=== PATIENT | female | born 1950 | race Caucasian/White ===

== ENCOUNTER 2017-12-25 00:22 | Outpatient (CLI) | payer MEDICARE, OTHER, SELFPAY ==
--- NOTE | 2017-12-25 13:08 | DI.MAMMO_ITS ---
SYMPTOM/DIAGNOSIS: SCREENING, Z12.31 MAMMOGRAMS: Mammograms were interpreted according to the usual protocol including computer analysis with CAD system, tomosynthesis and C view imaging. Comparison is made with prior examinations. Breast density, B. No masses or microcalcifications are seen. There is nothing to suggest malignancy. IMPRESSION: Negative mammogram. Routine screening is recommended. Category 1B. MQSA ASSESSMENT OF FINDINGS: Negative. Category 1. Patient will receive a letter notifying them of these results. BI-RADS category B. There are scattered areas of fibroglandular density.
== END 2017-12-25 00:42 ==
PROVIDERS: PCP Emergency Medicine; Visit Provider Nurse Practitioner Family
DX: Z12.31 Encounter for screening mammogram for malignant neoplasm of breast (principal)
CPT/HCPCS: 77063; 77067

== ENCOUNTER 2017-12-29 17:30 | Emergency (ER) | payer MEDICARE, OTHER, SELFPAY ==
[2017-12-29 17:39] VITALS: BP 152/79; PULSE 88; RESP 18; TEMP 37; O2SAT 99
--- NOTE | 2017-12-29 18:04 | ED.GENADUL_ITS ---
Discharge Plan Disposition Patient Disposition: HOME Condition: Stable Discharge Details Chief Complaint: Orthopedic Clinical Impression: Fracture of right ankle Primary Care Provider: Erik Hollis ED Provider: Leyla Mccann Home Meds and New Rx's Prescriptions: New oxycodone 5 mg tablet 5 mg PO Q6H PRN (Reason: pain) Qty: 10 RF: 0 Continue acetaminophen [Tylenol] 325 MG tablet 325 mg PO PRN PRNRF: 0 Discharge Instructions Instructions: Ankle Fracture (ED) Additional Instructions: Rest, ice, elevate right lower extremities much as possible. Take Tylenol or Motrin as needed and directed for pain. Take the oxycodone as needed and directed for pain not relieved with Tylenol or Motrin. You should receive a call from orthopedics regarding plan for follow-up. Return to the emergency department with any worsening or new concerning symptoms. Referrals: Tirso Graham MD [ [facility]] - Discharge Data Discharge Date/Time-TO BE ENTERED AT DEPARTURE: 12/29/17 20:35 Discharge Physician: Leyla Mccann Medical Decision Making 67-year-old female who presents with right ankle pain and injury after twisting it while hiking prior to arrival. Has not taken anything for pain. There is moderate edema/ecchymosis/tenderness to right medial and lateral malleolus. No deformity. Neurovascularly intact. We will send her right ankle x-ray and give a dose of Motrin and Tylenol. 1904 --right ankle x-ray notes acute fracture of the distal fibula to the level of the ankle mortise with minimal lateral angulation distally as well as acute nondisplaced fracture of the medial malleolus. X-ray reviewed with Dr. Graham and agree with plan for posterior splint. Patient placed on orthopedic follow-up list. Patient given crutches, instructed on nonweightbearing, rest, ice and elevation. Will send home with 2 tabs of oxycodone as well as prescription. She was instructed to return here with any concerns. HPI General Mode of arrival: wheelchair . Date/Time Provider Initiated Documentation: 12/29/17 18:00 . Limitations to Documentation: no limitations . Information obtained by: patient . HPI Narrative: Patient is a 67-year-old female presents with right ankle pain and swelling after slipped on a rock while hiking this afternoon. She denies any other injuries. She has not taken anything for pain. Past medical history: SVT Surgical history: Tonsillectomy and adenoidectomy Social history: Denies tobacco, alcohol or drugs Medications: None Allergies: Sulfa PCP: Dr. Hollis Related Data Home Medications Medication Instructions Recorded Confirmed acetaminophen [Tylenol] 325 mg PO PRN PRN 05/28/12 11/29/17 oxycodone 5 mg PO Q6H PRN #10 tab 12/29/17 Previous Rx's Medication Instructions Recorded oxycodone 5 mg PO Q6H PRN #10 tab 12/29/17 Allergies Allergy/AdvReac Type Severity Reaction Status Date / Time Sulfa (Sulfonamide AdvReac Intermediate Agitation Unverified 04/05/17 09:09 Antibiotics) General Stated Complaint: Orthopedic MARCEL: 4 Review of Systems Review of Systems All systems reviewed & are unremarkable except as noted in HPI and below PFSH Family History Mother Essential hypertension Heart disease Mental disorder Father Mental disorder Sister No problems noted. Brother Diabetes Brother No problems noted. Brother No problems noted. Grandfather Heart disease Grandfather Heart disease Grandmother Personal history of malignant neoplasm Grandmother No problems noted. Son No problems noted. Son No problems noted. Medical History SVT (supraventricular tachycardia) (Acute 09/01/14) Plantar fasciitis of right foot (Acute 07/20/15) Hallux rigidus of right foot (Acute 07/20/15) Bilateral tinnitus (Acute 07/20/15) Depression Social History current occupational status: retired frequency: 3-4 times per week duration: 45-60 minutes/day Smoking/Tobacco Use Status: Never alcohol intake: current alcohol intake frequency: a few times a week substance use type: does not use seatbelt use: always Surgical History Colonoscopy - MAC (12/23/12) Tonsillectomy and adenoidectomy Exam Const General: cooperative and healthy appearing Orientation: alert and awake [facility] Head: normal to inspection Ears: hearing grossly normal bilaterally and external ears normal General nose exam: external nose normal Face and sinus: normal facial exam Eyes General: appearance normal, both eyes and all related structures Eyelids: eyelids normal EOM: EOM intact bilaterally Neck Neck: normal visual inspection Resp Effort & Inspection: normal respiratory effort and able to speak in complete sentences Cardio Rate: regular rate Skin General skin exam: no rashes or lesions noted Neuro General: alert and awake Cognition: normal cognition Speech: speech normal Gait: antalgic Motor: muscle tone normal throughout Sensory Exam: no sensory deficits noted Extrem Right lower extremity: knee (Normal exam), ankle (Moderate tenderness to palpation, edema, ecchymoses noted to lateral and medial malleolus. No deformity ) and foot (No tenderness to palpation/edema/ecchymoses to 5th metatarsal. DP/ PT pulses intact) Other: Right DP/PT pulses intact Psych Appearance: grossly normal Mental Status: mental status grossly normal Speech and Movement: speech and movement normal Affect: normal affect Thought Process: normal Course Vital Signs Temperature 98.6 F 12/29/17 17:39 Pulse 88 12/29/17 17:39 Respiratory Rate 18 12/29/17 17:39 Blood Pressure 152/79 H 12/29/17 17:39 Pulse Oximetry 99 12/29/17 17:39 Temperature 98.6 F 12/29/17 17:39 Temperature Source Temporal Artery Scan 12/29/17 17:39 Pulse 88 12/29/17 17:39 Respiratory Rate 18 12/29/17 17:39 Respiratory Effort Non-Labored 12/29/17 17:41 Blood Pressure 152/79 H 12/29/17 17:39 Blood Pressure Position Sitting 12/29/17 17:39 Pulse Oximetry 99 12/29/17 17:39 Oxygen Delivery Method Room Air 12/29/17 17:39 Oxygen Flow Rate 0 12/29/17 17:39 Pain Level 7 12/29/17 17:41
--- NOTE | 2017-12-29 18:04 | DI.RAD_ITS ---
SYMPTOMS/DIAGNOSIS: S/P FALL, ? ACUTE FRACTURE RIGHT ANKLE: Three views were obtained. There is a bimalleolar fracture with mildly displaced fractures of the distal fibula and medial malleolus. The ankle mortise appears fairly well maintained. Note is made of a questionable linear lucency of the anterior process of the calcaneus, nondisplaced anterior process calcaneal fracture not excluded. If clinically indicated, additional evaluation with CT could be considered.
[2017-12-29] MEDS: Ibuprofen 600 MG TAB PO (18:09)
[2017-12-29] MEDS: Acetaminophen 325 MG TAB 650 MG PO (18:09)
--- NOTE | 2017-12-29 19:00 | DI.VRAD_ITS ---
EXAM: XR Right Ankle Complete, 3 or More Views CLINICAL HISTORY: 67 years old, female; Pain; Ankle; Right; Patient HX: S/P fall; Additional info: R/O acute fracture TECHNIQUE: Frontal, lateral and oblique views of the right ankle. COMPARISON: No relevant prior studies available. FINDINGS: Bones/joints: Acute fracture of the distal fibula extending to the level of ankle mortise with minimal lateral undulation distally. Acute nondisplaced fracture of the medial malleolus. Small well corticated fragment below the medial and lateral malleoli, likely chronic soft tissue calcification, versus old avulsion fractures. The ankle mortise appears intact. No dislocation. Soft tissues: Generalized soft tissue swelling. IMPRESSION: 1. Acute fracture of the distal fibula extending to the level of ankle mortise with minimal lateral undulation distally. Acute nondisplaced fracture of the medial malleolus. 2. Small well corticated fragment below the medial and lateral malleoli, likely chronic soft tissue calcification, versus old avulsion fractures. Dictated and Authenticated by: Berta Marrero MD. Ordering:TERESA ROWAN MD
[2017-12-29] MEDS: oxyCODONE 5 MG TAB PO (20:13)
== END 2017-12-29 20:35 | disposition home or self-care (01) ==
LOC: ER 20:34
PROVIDERS: Emergency Provider Physician Assistant; PCP Emergency Medicine
DX: S82.891A Other fracture of right lower leg, initial encounter for closed fracture (principal); X50.9XXA Other and unspecified overexertion or strenuous movements or postures, initial encounter; Y93.01 Activity, walking, marching and hiking
CPT/HCPCS: 29515; 99283; 73610; E0114

== ENCOUNTER → 2018-01-01 10:03 | Outpatient (BNVA) | payer MEDICARE, OTHER, SELFPAY | PROVIDERS: PCP Emergency Medicine; Referring Provider Emergency Medicine; Visit Provider Orthopaedic Surgery | DX: S82.841A Displaced bimalleolar fracture of right lower leg, initial encounter for closed fracture (principal); X58.XXXA Exposure to other specified factors, initial encounter | CPT/HCPCS: 99202; 99214; L4361 ==

== ENCOUNTER 2018-01-08 09:30 | Outpatient (CLI) | payer MEDICARE, OTHER, SELFPAY | END 2018-01-08 09:50 | PROVIDERS: PCP Emergency Medicine; Visit Provider Orthopaedic Surgery | DX: S82.841D Displaced bimalleolar fracture of right lower leg, subsequent encounter for closed fracture with routine healing (principal); X50.0XXD Overexertion from strenuous movement or load, subsequent encounter | CPT/HCPCS: 99213 ==

== ENCOUNTER 2018-01-10 06:22 | Day surgery (SDC) | payer MEDICARE, OTHER, SELFPAY ==
[2018-01-10] VITALS (11 sets, daily range): BP systolic 92–124; BP diastolic 51–82; PULSE 66–87; RESP 10–16; TEMP 35.5–36.6; O2SAT 96–98
[2018-01-10] MEDS: Lactated Ringers 1,000 ML 80 ML IV ×2 (07:15→10:20)
--- NOTE | 2018-01-10 07:21 | DI.RAD_ITS ---
SYMPTOMS/DIAGNOSIS: RIGHT ANKLE FRACTURE C-ARM FLUOROSCOPY, RIGHT ANKLE: Fluoroscopy Time: 19.9 seconds /0.80 mGy C-arm fluoroscopy was utilized by Dr. Gutiérrez during open reduction and internal fixation of tibiofibular fracture. Hard copy shows fixation apparatus in place transfixing the fracture fragments of the tibia and fibula.
[2018-01-10] MEDS: Bupivacaine 0.25% Pres-Free 30 ML VIAL (08:01)
--- NOTE | 2018-01-10 10:13 | PDOC.DSDIS_ITS ---
Discharge Plan Disposition Patient Disposition: HOME Condition: Good Discharge Details Reason For Visit: BIMALLEOLAR FX (R) ANKLE Attending Provider: Peng Gutiérrez Primary Care Provider: Erik Hollis Home Meds and New Rx's Prescriptions: New hydrocodone-acetaminophen 5-325 mg tablet 1 tab PO Q6H PRN (Reason: pain) Qty: 20 RF: 0 ibuprofen 600 mg tablet 600 mg PO TID Qty: 30 RF: 0 Continue ibuprofen 400 mg tablet 400 mg PO ONCE RF: 0 acetaminophen [Tylenol] 325 MG tablet 325 mg PO PRN PRNRF: 0 acetaminophen [Tylenol Extra Strength] 500 mg Tablet 1,000 mg PO TID RF: 0 Discharge Instructions Additional Instructions: Elevate R ankle on 2-3 pillows as much as possible for next 48 hours. Elevate R ankle when sitting. Don't step on R foot. May rest splint on floor for balance when standing. Keep dressings and splint dry and intact until return in 2 weeks. Use walker or crutches to walk. Take ibuprofen 600 mg 3 times/day for 10 days for pain and inflammation. Take hydrocodone for breakthru pain every 6 hours, if needed. Follow up with in 2 weeks. Referrals: Peng uGtiérrez MD [ [facility] STAFF PHYSICIAN] - (F/U in 2 weeks.) Equipment/Supplies: Non-Weight Bearing Crutches and Splint Activity:: Activity as Tolerated Remove Dressings/Wound Care:: Do Not Remove Shower/Bathe:: Cover Diet:: As Tolerated Discharge Orders Discharge Orders: Discharge Order (Routine); Ordered 01/10/18 Ordered By: Peng Gutiérrez DS: Diagnosis Discharge Diagnosis (1) Bimalleolar fracture of right ankle: Start date: 01/10/18 Start time: 10:12 Status: Acute Asessment and Plan: ORIF of bimalleolar R ankle fx.
[2018-01-10] MEDS: HYDROmorphone 2 MG/ML VIAL IVP ×2 (11:09→11:33)
--- NOTE | 2018-01-10 11:18 | DI.RAD_ITS ---
SYMPTOMS/DIAGNOSIS: CHECK REDUCTION FOLLOWING OPEN REDUCTION AND INTERNAL FIXATION OF BIMALLEOLAR FX PORTABLE RIGHT ANKLE: Four views were obtained and show plate and screw fixation of previously described tibiofibular fracture. The ankle is in a splint.
--- NOTE | 2018-01-10 12:06 | ROE_ITS ---
REPORT OF OPERATIVE PROCEDURE DATE OF PROCEDURE January 10, 2018 PREOPERATIVE DIAGNOSIS Bimalleolar fracture, right ankle. POSTOPERATIVE DIAGNOSIS Bimalleolar fracture, right ankle. PROCEDURES PERFORMED Open reduction internal fixation of Bimalleolar fracture right ankle, application of Holder dressing a nd short-leg posterior splint. ANESTHESIA General, Sunshine Ansari C.R.N.A. SURGEON Peng Gutiérrez M.D. MANAGER RADIO Benjamin Gutierrez INDICATIONS This is a 67-year-old white female who had sustained a bimalleolar fracture of her right ankle 10 day s ago. Her fracture was initially undisplaced. She was treated with nonweightbearing in a fracture wa lking brace. Followup x-rays approximately 10 days later showed that the fracture had displaced. Open reduction internal fixation was therefore recommended to restore the anatomy of the ankle mortise an d provide optimum function. The risks and complications of the procedure were explained to the patien t in detail preoperative. PROCEDURE The patient was taken to the Operating Room on 01/10/18. She was placed supine on the Operating Tabl e. A femoral and adductor canal blocks were performed, and then a general anesthetic was administere d. A proximal tourniquet was applied to the right upper thigh, and then the right foot, ankle and lo wer leg were prepped and draped freely in the usual sterile fashion. Under proximal tourniquet in con trol, a curved incision was made over the medial malleolus. The incision was carried down to the subc u. The saphenous vein was identified, preserved and retracted anteriorly. The fracture site was enter ed. The foot was abducted and I was able to see inside the joint. I irrigated the joint with saline s olution. There was some scuffing of the articular cartilage on the medial dome of the talus. The tibi al plafond articular cartilage was intact. I then made a direct lateral incision beginning at the distal tip of the fibula and extending proxima lly about 5 inches. The incision was carried down to the fibula. The fracture site was entered. The p eroneal fascia was incised. The fracture hematoma was irrigated and curetted from the fracture site a nd the fracture was reduced with self-centering towel clip. A 7-hole one third tubular plate was then contoured to fit the lateral fibula and then the plate was secured to the fibula with two locking sc rews in the distal holes and the rest with 3.5 cortical screws. I did place a syndesmotic screw throu gh the plate and into the tibia for added strength of the construct. Image intensification AP showed the ankle mortise is anatomically reduced, as was the medial malleolar fracture fragment. The screws were all of appropriate length. I fine tuned the reduction of the medial malleolus until it was anatomic and then fixed it with two p arallel 0.062 K-wires. With the C-arm image intensifier confirmed that the wires were in good positio n, did not violate the ankle joint. I then replaced the anterior wire with a 45-mm 4.0 cancellous scr ew with washer, which provided good compression of the fracture. The posterior pin was then bent, cut short and the distal tip of the wire was impacted into the medial malleolus with a tamp and a mallet . Both wounds were irrigated with Betadine and saline solution. The wound margins of both incisions w ere infiltrated with 0.5% Marcaine with epinephrine solution. Laterally I approximated the peroneal f ascia over the plate with interrupted sadhoh-et-dsfbm sutures of #0-Vicryl suture material. The skin edges were approximated with skin eveline. On the medial side, the skin was approximated with some in terrupted subcu #2-0 Vicryl sutures and then the skin edges were approximated with mfno-pao-neb-near sutures of #3-0 Nylon to reduce tension on the incisions. The wounds were dressed with Xeroform gauze , sterile gauze, 4x4s, ABD pad and wrapped with a 4-inch Kerlix bandage. A short-leg Holder compressi on dressing was applied, followed by a short-leg posterior fiberglass splint held in place with a 6-i nch Edi bandages. . The tourniquet was released. The patient tolerated the procedure well. Her anesth esia was reversed without complications. She was discharged to the Recovery Room in good condition. The patient was later discharged home from the Day Surgery Unit when fully recovered from her General anesthesia. She was given instructions to elevate her right ankle on two to three pillows as much as possible for the next 48 hours. She is to elevate her right ankle whenever she is sitting. She is to keep the dressing and splint intact and dry until she follows up in my office in two weeks. She is s een by physical therapy for gait training, nonweightbearing on the right in the Day Surgery unit. She is given a prescription for inflammation and pain of ibuprofen 600 mg p.o. t.i.d. for the next 10 da ys. She was given a prescription for hydrocodone/APAP 5/325 1 tablet every 6 hours as needed for veronica kthrough pain.
[2018-01-10] MEDS: oxyCODONE-CR 10 MG TABCR (12:41)
--- NOTE | 2018-01-10 13:32 | PT.INIE ---
Date of service: 01/10/18 Time of Service: 13:16 PT Notes Inpatient Physical Therapy Evaluation Date: 01/10/18 Referring Doctor: Peng Gutiérrez PT Orders: PT CONSULT: gait training NWB on R with walker or crutches. See in DSU prior to discharge home. Precautions: NWB R LE Patient Profile/Admitting Diagnosis: Pt is a 67yr old female with right bimalleolar fracture s/p open reduction internal fixation by Dr. Gutiérrez 01/10/18 PMHX: see medical chart Social History/Home Situation: Lives with in a house, 3 steps with railing to enter, 1 step inside home. Baseline mobility independent gait with no device, independent ADLs. Since her fracture 10 days ago pt has been mobilizing at home with axillary crutches non-weight bearing in home and up/down stairs. Pt states she feels comfortable with use of crutches in home setting. She also has a 4WW and FWW she can use at home as needed. Equipment Owned/DME: 4WW, FWW, axillary crutches Subjective: Pt lying on gurney, nauseous and lightheaded with any movement, RN in room monitoring patient. Pt wanting to attempt mobilization and perform gait training. Objective: General Observation: long leg cast R LE Mental Status: A&O x3 Pain: no c/o pain Bed Mobility/Transfers: Supine-sit: independent Sit-stand: independent Stand-sit: independent Sit-supine: independent Gait: Pt stood off gurney with axillary crutches, became lightheaded and dizzy, unable to progress to gait training with crutches in the room. Verbally reviewed crutch mobility with patient for level surfaces and stairs. Pt states she feels comfortable with use of crutches and has been using them at home prior to surgery. Balance: Static Sitting: normal Dynamic Sitting: normal Static Standing: fair Dynamic Standing: fair Special Tests: Mobility Limitations Standardized Measure [facility]-PAC 6 clicks Basic Mobility Inpatient Short Form: Raw Score: 18 Standardized Score: 43.63 CMS Score: 46.58% CMS Modifier: CK Informed Consent/Education: Patient instructed in purpose of PT consult and plan of care. Assessment: Pt is a 67yr old female with right bimalleolar fracture s/p open reduction internal fixation by Dr. Gutiérrez 01/10/18. Patient gait instruction limited by nausea and lightheadedness. Verbally reviewed crutch mobility with patient for level surfaces and stairs. Pt states she feels comfortable with use of crutches and has been using them at home prior to surgery. Pt also has a FWW and 4WW at home she can use as needed. Pt to be discharged to home today following MD instructions. Impairments are contributing to the following functional limitations: AMPAC score CMS Score: 46.58% Patient is assessed as a Low 77503 complexity based on the following: History: see above Examination: see above Presentation: evolving Decision Making: AMPAC score CMS Score: 46.58% Goals: not applicable Plan of Care/Treatment Plan: PT eval DISCHARGE RECOMMENDATIONS: Home TREATMENT CODE/TIME: 15 IE 1315 G Codes in the area mobility of walking and moving around: current status [id number] CK; projected status GP [id number]. Discharge status (if discharging) GP [id number] CK AMPAC score CMS Score: 46.58% Mary Bustillos PT.
--- NOTE | 2018-01-10 13:42 | IN_ITS ---
Date of service: 01/10/18 Time of Service: 13:16 PT Notes Inpatient Physical Therapy Evaluation Date: 01/10/18 Referring Doctor: Peng Gutiérrez PT Orders: PT CONSULT: gait training NWB on R with walker or crutches. See in DSU prior to discharge home. Precautions: NWB R LE Patient Profile/Admitting Diagnosis: Pt is a 67yr old female with right bimalleolar fracture s/p open reduction internal fixation by Dr. Gutiérrez 01/10/18 PMHX: see medical chart Social History/Home Situation: Lives with in a house, 3 steps with railing to enter, 1 step inside home. Baseline mobility independent gait with no device, independent ADLs. Since her fracture 10 days ago pt has been mobilizing at home with axillary crutches non-weight bearing in home and up/ down stairs. Pt states she feels comfortable with use of crutches in home setting. She also has a 4WW and FWW she can use at home as needed. Equipment Owned/DME: 4WW, FWW, axillary crutches Subjective: Pt lying on gurney, nauseous and lightheaded with any movement, RN in room monitoring patient. Pt wanting to attempt mobilization and perform gait training. Objective: General Observation: long leg cast R LE Mental Status: A&O x3 Pain: no c/o pain Bed Mobility/Transfers: Supine-sit: independent Sit-stand: independent Stand-sit: independent Sit-supine: independent Gait: Pt stood off gurney with axillary crutches, became lightheaded and dizzy, unable to progress to gait training with crutches in the room. Verbally reviewed crutch mobility with patient for level surfaces and stairs. Pt states she feels comfortable with use of crutches and has been using them at home prior to surgery. Balance: Static Sitting: normal Dynamic Sitting: normal Static Standing: fair Dynamic Standing: fair Special Tests: Mobility Limitations Standardized Measure [facility]-PAC 6 clicks Basic Mobility Inpatient Short Form: Raw Score: 18 Standardized Score: 43.63 CMS Score: 46.58% CMS Modifier: CK Informed Consent/Education: Patient instructed in purpose of PT consult and plan of care. Assessment: Pt is a 67yr old female with right bimalleolar fracture s/p open reduction internal fixation by Dr. Gutiérrez 01/10/18. Patient gait instruction limited by nausea and lightheadedness. Verbally reviewed crutch mobility with patient for level surfaces and stairs. Pt states she feels comfortable with use of crutches and has been using them at home prior to surgery. Pt also has a FWW and 4WW at home she can use as needed. Pt to be discharged to home today following MD instructions. Impairments are contributing to the following functional limitations: AMPAC score CMS Score: 46.58% Patient is assessed as a Low 51503 complexity based on the following: History: see above Examination: see above Presentation: evolving Decision Making: AMPAC score CMS Score: 46.58% Goals: not applicable Plan of Care/Treatment Plan: PT eval DISCHARGE RECOMMENDATIONS: Home TREATMENT CODE/TIME: 15 IE 1315 G Codes in the area mobility of walking and moving around: current status [id number] CK; projected status GP [id number]. Discharge status (if discharging) GP [id number] CK AMPAC score CMS Score: 46.58% Mary Bustillos PT.
[2018-01-10] MEDS: Ondansetron O.D.T. 4 MG TABEF PO (14:04)
== END 2018-01-10 14:30 | disposition home or self-care (01) ==
PROVIDERS: PCP Emergency Medicine; Visit Provider Orthopaedic Surgery
PROC: (CPT 27814; principal; 2018-01-10 08:00)
DX: S82.841A Displaced bimalleolar fracture of right lower leg, initial encounter for closed fracture (principal); X58.XXXA Exposure to other specified factors, initial encounter; G89.18 Other acute postprocedural pain
CPT/HCPCS: 27814; 76942; 97161; 73600; 73610; G8978; J0131; J0690; J1100; J1885; J2250; J2405; J3010

== ENCOUNTER 2018-01-23 10:38 | Outpatient (CLI) | payer MEDICARE, OTHER, SELFPAY ==
--- NOTE | 2018-01-23 10:31 | DI.RAD_ITS ---
SYMPTOMS/DIAGNOSIS: F/U OPEN REDUCTION AND INTERNAL FIXATION RIGHT ANKLE: When compared with the postoperative images from 01/10/2018, the medial and lateral malleolar fractures are in anatomical position, orthopedic hardware in place with no interval change when compared with the postoperative examination of 01/10/2018.
== END 2018-01-23 10:58 ==
PROVIDERS: PCP Emergency Medicine; Referring Provider Emergency Medicine; Visit Provider Orthopaedic Surgery
DX: S82.841D Displaced bimalleolar fracture of right lower leg, subsequent encounter for closed fracture with routine healing (principal); W01.0XXD Fall on same level from slipping, tripping and stumbling without subsequent striking against object, subsequent encounter; Y93.01 Activity, walking, marching and hiking
CPT/HCPCS: 73610

== ENCOUNTER 2018-02-20 10:13 | Outpatient (CLI) | payer MEDICARE, OTHER, SELFPAY ==
--- NOTE | 2018-02-20 10:06 | DI.RAD_ITS ---
SYMPTOM/DIAGNOSIS: PAIN RIGHT ANKLE: Comparison is made with 23 Jan 2018. There has been no change in the hardware or fracture alignment.
== END 2018-02-20 10:33 ==
PROVIDERS: PCP Emergency Medicine; Referring Provider Emergency Medicine; Visit Provider Orthopaedic Surgery
DX: M25.571 Pain in right ankle and joints of right foot (principal); S82.841D Displaced bimalleolar fracture of right lower leg, subsequent encounter for closed fracture with routine healing; W01.0XXD Fall on same level from slipping, tripping and stumbling without subsequent striking against object, subsequent encounter
CPT/HCPCS: 73600

== ENCOUNTER 2018-03-20 10:57 | Outpatient (CLI) | payer MEDICARE, OTHER, SELFPAY ==
--- NOTE | 2018-03-20 10:51 | DI.RAD_ITS ---
SYMPTOMS/DIAGNOSIS: F/U ORIF RIGHT ANKLE: Three views. Comparison 02/20/18. There are again seen sideplate and screws transfixing the fractures of the distal right tibia and fibula. The orthopedic hardware appears in good position. No evidence of failure is seen. The fractures appear stable in alignment. No new fractures or dislocations are present. There is osteopenia of the bones, likely reflecting decreased use. IMPRESSION: Stable right ankle.
== END 2018-03-20 11:17 ==
PROVIDERS: PCP Emergency Medicine; Visit Provider Orthopaedic Surgery
DX: S82.841D Displaced bimalleolar fracture of right lower leg, subsequent encounter for closed fracture with routine healing (principal); M85.88 Other specified disorders of bone density and structure, other site; W01.0XXD Fall on same level from slipping, tripping and stumbling without subsequent striking against object, subsequent encounter
CPT/HCPCS: 73610

== ENCOUNTER 2018-09-09 10:52 | Outpatient (CLI) | payer MEDICARE, OTHER, SELFPAY ==
--- NOTE | 2018-09-09 11:00 | DI.RAD_ITS ---
SYMPTOM/DIAGNOSIS: PAIN RIGHT ANKLE: Comparison is made with 20 March 2018. There is no evidence of an acute fracture. There is now lucency surrounding the mortise screw. The remaining hardware appears unchanged. There is soft tissue swelling around both malleoli The ankle mortise and talar dome appear intact.
== END 2018-09-09 11:12 ==
PROVIDERS: PCP Emergency Medicine; Referring Provider Emergency Medicine; Visit Provider Orthopaedic Surgery
DX: M25.571 Pain in right ankle and joints of right foot (principal); M79.89 Other specified soft tissue disorders; T84.84XA Pain due to internal orthopedic prosthetic devices, implants and grafts, initial encounter; Z87.81 Personal history of (healed) traumatic fracture
CPT/HCPCS: 99213; 73610

== ENCOUNTER 2018-09-16 10:54 | Outpatient (CLI) | payer MEDICARE, OTHER, SELFPAY ==
--- NOTE | 2018-09-16 12:45 | W.PREOPHP ---
Date of service: 09/16/18 Assessment and Plan (1) Painful orthopaedic hardware: Current visit: Yes Status: Acute Hardware removal of medial malleolus K wire, and syndesmotic screw of the right ankle. Details of surgery were discussed with patient as well as risks and pertinent anatomy. All questions were answered. History of Present Illness Chief Complaint: Painful hardware right ankle Narrative: Aliza is a 68-year-old female who comes in today for preop history and physical for removal of hardware of her right ankle. She had an ORIF of a bimalleolar fracture of the right ankle on 01/10/2018, so about 9 months ago, and she has healed nicely from the right ankle fracture. Since the surgery, however, she has had some pain both on the medial and lateral aspects of her ankle. She also has some localized swelling around the area of the incision, especially the medial incision. X-rays were taken a few months after surgery which reveal that the K wire on the medial malleolus is starting to back out, and the syndesmotic screw appears to be a bit loose. Because she is having continued pain, Dr. Gutiérrez offers a hardware removal of the K wire on the medial side, and the syndesmotic screw. She is agreed to this plan, and is anxious to proceed. Pertinent Surgical Information Aliza has had issues with tachycardia for the last few years, and in fact has had a couple stents of a Holter monitor which did not reveal any atrial fibrillation, but did reveal some PVCs, and most recently SVT while she was in [place]. She is being followed by [facility] cardiology, and in fact has an appointment on September 23 with cardiology for clearance for her surgery on September 24. Patient denies history of hypertension, CVA, [place], angina, asthma, COPD, renal or liver disorders, hepatitis, bleeding disorders, diabetes, immune or thyroid disorders. No complications from anesthesia. Review of Systems Constitutional Denies fever(s) ENT Denies dizziness and Denies sore throat Cardiovascular Denies chest pain, [place] [facility] [place] and Denies dyspnea Respiratory Denies cough and Denies dyspnea Gastrointestinal Denies abdominal pain, Denies melena, Denies hematochezia, Denies diarrhea, Denies nausea and Denies vomiting Genitourinary Denies hematuria and Denies dysuria Neurologic Denies dizziness Endocrine Reports palpitations [place] [facility] [place] [facility] Medical History SVT (supraventricular tachycardia) (Acute 09/01/14) Plantar fasciitis of right foot (Acute 07/20/15) Hallux rigidus of right foot (Acute 07/20/15) Bilateral tinnitus (Acute 07/20/15) Depression Surgical History Status post ORIF of fracture of ankle (Acute 01/10/18) Colonoscopy - MAC (12/23/12) Tonsillectomy and adenoidectomy Family History Mother Essential hypertension Heart disease Mental disorder Father Mental disorder Sister No problems noted. Brother Diabetes Brother No problems noted. Brother No problems noted. Grandfather Heart disease Grandfather Heart disease Grandmother Personal history of malignant neoplasm Grandmother No problems noted. Son No problems noted. Son No problems noted. Social History Smoking/Tobacco Use Status: Never Alcohol Intake: never Drug use: Never Substance use type: does not use Duration: 45-60 minutes/day Frequency: 3-4 times per week Seatbelt use: always Do you feel safe at home: Yes Do you feel safe in your relationship?: Yes History History Para 2 Hx # Term Pregnancies Multiple births Hx # Pregnancies Ectopic pregnancies AB induced Hx Number of Living Children AB spontaneous Meds Home Medications Medication Instructions Recorded Confirmed Type acetaminophen 500 mg tablet 1,000 mg PO PRN tab 09/09/18 09/16/18 History Allergies Allergy/AdvReac Type Severity Reaction Status Date / Time Sulfa (Sulfonamide AdvReac Intermediate Agitation Verified 09/16/18 11:58 Antibiotics) Exam HENMT Head: normocephalic and atraumatic General nose exam: no nasal discharge Throat: uvula midline and no uvular edema Other: soft palate rises symmetrically, no erythema Eyes Conjunctivae: conjunctivae normal Sclera: sclerae normal Pupils: PERRL Resp Effort & Inspection: normal respiratory effort Auscultation: clear to auscultation bilaterally and no wheezes Cardio Rate: regular rate Rhythm: regular rhythm Heart Sounds: S1 normal, S2 normal and no murmurs GI Palpation: soft, no hepatosplenomegaly and nontender Auscultation: normal bowel sounds
--- NOTE | 2018-09-16 12:54 | HPE_ITS ---
Date of service: 09/16/18 Assessment and Plan (1) Painful orthopaedic hardware: Current visit: Yes Status: Acute Hardware removal of medial malleolus K wire, and syndesmotic screw of the right ankle. Details of surgery were discussed with patient as well as risks and pertinent anatomy. All questions were answered. History of Present Illness Chief Complaint: Painful hardware right ankle Narrative: Aliza is a 68-year-old female who comes in today for preop history and physical for removal of hardware of her right ankle. She had an ORIF of a bimalleolar fracture of the right ankle on 01/10/2018, so about 9 months ago, and she has healed nicely from the right ankle fracture. Since the surgery, however, she has had some pa in both on the medial and lateral aspects of her ankle. She also has some localized swelling around the area of the incision, especially the medial incision. X-rays were taken a few months after surgery which reveal that the K wire on the medial malleolus is starting to back out, and the syndesmotic screw appears to be a bit loose. Because she is having continued pain, Dr. Gutiérrez offers a hardware removal of the K wire on the medial side, and the syndesmotic screw. She is agreed to this plan, and is anxious to proceed. Pertinent Surgical Information Aliza has had issues with tachycardia for the last few years, and in fact has had a couple stents of a Holter monitor which did not reveal any atrial fibrillation, but did reveal some PVCs, and most recently SVT while she was in [place]. She is being followed by [facility] cardiology, and in fact has an appointment on September 23 with cardiology for clearance for her surgery on September 24. Patient denies history of hypertension, CVA, [place], angina, asthma, COPD, renal or liver disorders, hepatitis, bleeding disorders, diabetes, immune or thyroid disorders. No complications from anesthesia. Review of Systems Constitutional Denies fever(s) ENT Denies dizziness and Denies sore throat Cardiovascular Denies chest pain, Reports palpitations (followed by cardiology at [facility] [place] and Denies dyspnea Respiratory Denies cough and Denies dyspnea Gastrointestinal Denies abdominal pain, Denies melena, Denies hematochezia, Denies diarrhea, Denies nausea and Denies vomiting Genitourinary Denies hematuria and Denies dysuria Neurologic Denies dizziness Endocrine Reports palpitations (followed by cardiology at [facility] [place] [facility] Medical History SVT (supraventricular tachycardia) (Acute 09/01/14) Plantar fasciitis of right foot (Acute 07/20/15) Hallux rigidus of right foot (Acute 07/20/15) Bilateral tinnitus (Acute 07/20/15) Depression Surgical History Status post ORIF of fracture of ankle (Acute 01/10/18) Colonoscopy - MAC (12/23/12) Tonsillectomy and adenoidectomy Family History Mother Essential hypertension Heart disease Mental disorder Father Mental disorder Sister No problems noted. Brother Diabetes Brother No problems noted. Brother No problems noted. Grandfather Heart disease Grandfather Heart disease Grandmother Personal history of malignant neoplasm Grandmother No problems noted. Son No problems noted. Son No problems noted. Social History Smoking/Tobacco Use Status: Never Alcohol Intake: never Drug use: Never Substance use type: does not use Duration: 45-60 minutes/day Frequency: 3-4 times per week Seatbelt use: always Do you feel safe at home: Yes Do you feel safe in your relationship?: Yes History History Para 2 Hx # Term Pregnancies Multiple births Hx # Pregnancies Ectopic pregnancies AB induced Hx Number of Living Children AB spontaneous Meds Home Medications Medication Instructions Recorded Confirmed Type acetaminophen 500 mg tablet 1,000 mg PO PRN tab 09/09/18 09/16/18 History Allergies Allergy/AdvReac Type Severity Reaction Status Date / Time Sulfa (Sulfonamide AdvReac Intermediate Agitation Verified 09/16/18 11:58 Antibiotics) Exam HENMT Head: normocephalic and atraumatic General nose exam: no nasal discharge Throat: uvula midline and no uvular edema Other: soft palate rises symmetrically, no erythema Eyes Conjunctivae: conjunctivae normal Sclera: sclerae normal Pupils: PERRL Resp Effort & Inspection: normal respiratory effort Auscultation: clear to auscultation bilaterally and no wheezes Cardio Rate: regular rate Rhythm: regular rhythm Heart Sounds: S1 normal, S2 normal and no murmurs GI Palpation: soft, no hepatosplenomegaly and nontender Auscultation: normal bowel sounds
== END 2018-09-16 11:14 ==
PROVIDERS: PCP Emergency Medicine; Visit Provider Orthopaedic Surgery
DX: T84.84XA Pain due to internal orthopedic prosthetic devices, implants and grafts, initial encounter (principal); Z01.818 Encounter for other preprocedural examination; Z87.81 Personal history of (healed) traumatic fracture
CPT/HCPCS: NC

== ENCOUNTER 2018-09-24 11:23 | Day surgery (SDC) | payer MEDICARE, OTHER, SELFPAY ==
[2018-09-16 11:00] VITALS: BP 146/77; PULSE 78; RESP 18; TEMP 36.6; O2SAT 98
[2018-09-24 11:43] VITALS: BP 136/78; PULSE 82; RESP 16; TEMP 37.2; O2SAT 95
[2018-09-24] MEDS: Lactated Ringers 1,000 ML 80 ML IV (12:10)
--- NOTE | 2018-09-24 13:30 | DI.RAD_ITS ---
SYMPTOMS/DIAGNOSIS: RIGHT ANKLE HARDWARE REMOVAL RIGHT FOOT: Fluoroscopy Time: 6 sec C-arm fluoroscopy was utilized by Dr. Gutiérrez during reported hardware removal. Hard copy shows forceps positioned over the tibiofibular screw, which appeared to have a lucent halo suggesting loosening on recent films of September 09.
--- NOTE | 2018-09-24 14:23 | W.PM.DSUDISC ---
Discharge Plan Disposition Patient Disposition: HOME Condition: Good Discharge Details Reason For Visit: Remove painful hardware R ankle Attending Provider: Peng Gutiérrez Primary Care Provider: Erik Hollis Home Meds and New Rx's Prescriptions: Continued acetaminophen [Tylenol Extra Strength] 500 mg tablet 1,000 mg PO PRN RF: 0 Discharge Instructions Additional Instructions: Elevate R ankle on 1-2pillows when sitting. Crutches to walk. Discontinue crutches when you can step fully on R foot without pain. Remove dressings, shower and get incisions wet after 48 hours. Leave incisions uncovered when they are dry and sealed. Take ibuprofen or tylenol for pain , if needed. Follow up with in 2 weeks. Referrals: Peng Gutiérrez MD [ [facility] STAFF PHYSICIAN] - (f/u in 2 weeks.) Equipment/Supplies: Partial Weight Bearing Crutches Activity:: Activity as Tolerated Remove Dressings/Wound Care:: 48 hours Shower/Bathe:: 48 hours Diet:: As Tolerated Discharge Orders Discharge Orders: Discharge Order (Routine); Ordered 09/24/18 Ordered By: Peng Gutiérrez DS: Diagnosis Discharge Diagnosis (1) Painful orthopaedic hardware: Status: Acute
[2018-09-24 14:26] VITALS: BP 132/74; PULSE 83; RESP 10; TEMP 36.6; O2SAT 96
[2018-09-24 14:30] VITALS: BP 134/70; PULSE 77; RESP 11; TEMP 36.6; O2SAT 96
[2018-09-24 14:35] VITALS: BP 132/66; PULSE 74; RESP 10; TEMP 36.6; O2SAT 95
[2018-09-24 14:50] VITALS: BP 123/62; PULSE 80; RESP 11; TEMP 36.6; O2SAT 95
[2018-09-24 15:34] VITALS: BP 131/71; PULSE 74; RESP 17; TEMP 36.8; O2SAT 99
--- NOTE | 2018-09-26 07:46 | ROE_ITS ---
REPORT OF OPERATIVE PROCEDURE DATE OF PROCEDURE September 24, 2018 PREOPERATIVE DIAGNOSIS Painful hardware right ankle. POSTOPERATIVE DIAGNOSIS Painful hardware right ankle. PROCEDURE Removal of painful hardware right ankle. ANESTHESIA General. SURGEON Peng Gutiérrez M.D. INDICATIONS This 68-year-old white female who had undergone an ORIF of a bimalleolar fracture dislocation of the right ankle over two years ago. She had done well following the surgery, but has noticed some ongoing problems with medial pain. X-rays reveal that the smooth K-wire that was used as an adjunct to screw fixation of the medial malleolus had backed out. In addition, it was noted that she had a syndesmotic screw placed through her fibular plate that had not broken yet, but had obvious signs of loosening. It was recommended that the syndesmotic screw be removed prior to breakage since it had done what it was supposed to do. I recommended that the pin be removed from the medial side of the ankle as well. The risks and complications of the procedure wer e explained to the patient in detail preoperatively. DESCRIPTION OF PROCEDURE The patient was taken to the Operating Room on 09/24/2018. She was placed supine on the operating ta ble. A general anesthetic was administered. The right foot and ankle, and lower leg were prepped and draped free and usual sterile fashion. I infiltrated the skin within the old scar on the medial side of the ankle with 0.5% Marcaine with epinephrine solution. A small incision was made about 3 centimet ers in length with the old scar. The incision was carried down until I felt metal. Using a dental pic , I was able to dissect the soft tissues out and remove the smooth K-wire, which was loose. The skin edges were then approximated with three simple #4-0 Nylon sutures. Attention was turned to the lateral side. I was able to palpate the screws and the lateral plate and was able to note that the syndesmotic screw was the third screw from the distal end. I made a small i ncision again about 3 centimeters directly over the screw head. I carried down the metal, sharp disse ction was used to expose the screw head. A 3.5 screwdriver was then used to back out the syndesmotic screw. Since the syndesmotic screw was the only long screw in the plate, I did not need x-rays to leslie ntify it. The wound margins were infiltrated with 0.5% Marcaine with epinephrine solution. The skin e dges were approximated with three interrupted #4-0 Nylon sutures. Both incisions were dressed with Xe roform gauze, sterile gauze 4x4s, and wrapped with cling bandage, followed by an Edi bandage. The pat ient's anesthesia was reversed without complications. Blood loss was minimal. She was discharged to [facility] in good condition. The patient was later discharged home from the Day Surgery unit when fully recovered from her general anesthesia. She was instructed to elevate her right ankle when sitting as much as possible for the next 48 hours. She may be weightbearing as tolerated to the right ankle with crutches. She may discontinue the crut ches when she can step fully on her right ankle without pain. She may remove dressing, shower and get her incision wet after 48 hours. She can leave the incisions uncovered when they are dry and sealed. She is told to take Tylenol or ibuprofen for pain. She will followup with Dr. Gutiérrez in two weeks.
== END 2018-09-24 15:51 | disposition home or self-care (01) ==
PROVIDERS: PCP Emergency Medicine; Visit Provider Orthopaedic Surgery
PROC: (CPT 20680; principal; 2018-09-24 13:00)
DX: T84.84XA Pain due to internal orthopedic prosthetic devices, implants and grafts, initial encounter (principal); T84.126A Displacement of internal fixation device of bone of right lower leg, initial encounter; Y83.8 Other surgical procedures as the cause of abnormal reaction of the patient, or of later complication, without mention of misadventure at the time of the procedure; M25.571 Pain in right ankle and joints of right foot
CPT/HCPCS: 20680; 73600; J1100; J2405; J3010

== ENCOUNTER → 2018-10-07 08:52 | Outpatient (BNVA) | payer MEDICARE, OTHER, SELFPAY | PROVIDERS: PCP Emergency Medicine; Referring Provider Emergency Medicine; Visit Provider Orthopaedic Surgery | DX: T84.84XA Pain due to internal orthopedic prosthetic devices, implants and grafts, initial encounter (principal); Z47.89 Encounter for other orthopedic aftercare ==

== ENCOUNTER 2019-04-03 01:17 | Outpatient (CLI) | payer MEDICARE, OTHER, SELFPAY ==
[2019-04-03 12:46] LABS: Calculated LDL 127 mg/dL; Cholesterol 222 mg/dL (<200); HDL Cholesterol 76 mg/dL (40-60); Triglyceride 99 mg/dL (<150)
== END 2019-04-03 01:37 ==
PROVIDERS: PCP Emergency Medicine; Visit Provider Emergency Medicine
DX: H93.13 Tinnitus, bilateral (principal); E78.89 Other lipoprotein metabolism disorders
CPT/HCPCS: 36415; 80061

== ENCOUNTER → 2020-01-29 09:02 | Outpatient (CLI) | payer MEDICARE, OTHER, SELFPAY ==
--- NOTE | 2020-01-29 08:45 | DI.RAD_ITS ---
EXAM: XR ANKLE RT COMPLETE CLINICAL HISTORY: pain in ankle. TECHNIQUE: 2D digital imaging was performed. COMPARISON: CR XR ANKLE RT COMPLETE from 09/09/2018 FINDINGS: BONES: There are stable post operative changes present. No acute fracture or dislocation. Well corti cated osseous densities are seen at the tips of both the medial lateral malleoli consistent with old injury. JOINTS: The joint spaces are well maintained. No joint effusion is present. SOFT TISSUE: Normal. IMPRESSION: Stable postoperative changes. DATA REPOSITORY: RADIATION DOSE DELIVERED:
--- NOTE | 2020-01-29 08:45 | DI.RAD_ITS ---
EXAM: XR FOOT RT LIMITED CLINICAL HISTORY: eval R 1st MTP pain. TECHNIQUE: 2D digital imaging was performed. COMPARISON: CR XR foot RT limited from 09/24/2018 FINDINGS: BONES: No acute fracture is present. No bony destructive lesion is seen. JOINTS: No dislocation present. At the 1st MTP joint, there are large spurs present. Mild narrowing of the joint space is noted. There is a mild hallux valgus deformity. SOFT TISSUE: Normal. 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 DATA REPOSITORY: RADIATION DOSE DELIVERED:
== END ==
PROVIDERS: PCP Emergency Medicine; Referring Provider Emergency Medicine; Visit Provider Student in an Organized Health Care Education/Training Program
DX: M19.071 Primary osteoarthritis, right ankle and foot (principal); M25.571 Pain in right ankle and joints of right foot; M20.21 Hallux rigidus, right foot; Z87.81 Personal history of (healed) traumatic fracture
CPT/HCPCS: 99213; 73610; 73620

== ENCOUNTER 2020-06-27 02:31 | Outpatient (CLI) | payer MEDICARE, OTHER, SELFPAY ==
--- NOTE | 2020-06-27 08:00 | DI.MAMMO_ITS ---
EXAM: MG MAMMO SCREENING CLINICAL HISTORY: screening,Z12.39. TECHNIQUE: Bilateral full field digital CC and MLO mammographic images were obtained with 3D tomosyn thesis and utilizing computer aided detection (CAD). COMPARISON: Prior mammograms dating back to 2011, the most recent being December 2017. FINDINGS: There are no CAD designations. There are no new spiculated masses. There is a group of microcalcifications in the left breast seen on the CC view slightly lateral cente r and 3 centimetres in from the nipple. This microcalcification group remains stable from 2011 and t herefore benign. There is no significant architectural distortion nor skin thickening-retraction. IMPRESSION: Stable benign findings. No radiographic evidence of malignancy. BI-RADS Category 2 - Benign Findings Breast Density - Category B - Scattered areas of fibroglandular density Breast density Category C or D implies that the patient has dense breast tissue. Dense breast tissue can make it harder to find cancer on a mammogram. Dense breast tissue is also associated with an incr eased risk of breast cancer. This information about the result of the mammogram report was provided to the patient to raise their awareness. Use this report when you speak with the patient about their risks for breast cancer, which includes their family history. At that time, you may recommend additional screening tests (Ultrasoun d or MRI) as these tests may add significant information. A negative radiographic report should not delay biopsy if a dominant or clinically suspicious mass is present. Up to ten percent of cancers are not identified on mammography. A negative report may reinforce clinical impression. Adenosis and dense breasts may obscure an underlying neoplasm. False positive reports average 6 to 10%. Patient will receive a letter notifying them of these results.
== END 2020-06-27 02:51 ==
PROVIDERS: PCP Emergency Medicine; Visit Provider Nurse Practitioner Family
DX: Z12.31 Encounter for screening mammogram for malignant neoplasm of breast (principal); R92.0 Mammographic microcalcification found on diagnostic imaging of breast
CPT/HCPCS: 77063; 77067

== ENCOUNTER → 2020-09-01 10:57 | Outpatient (BNVA) | payer MEDICARE, OTHER, SELFPAY | PROVIDERS: PCP Emergency Medicine; Referring Provider Emergency Medicine; Visit Provider Physical Therapy Assistant | DX: K64.5 Perianal venous thrombosis (principal); I10 Essential (primary) hypertension | CPT/HCPCS: 46320 ==

== ENCOUNTER → 2020-09-08 10:10 | Outpatient (BNVA) | payer MEDICARE, OTHER, SELFPAY | PROVIDERS: PCP Emergency Medicine; Referring Provider Emergency Medicine; Visit Provider Physical Therapy Assistant | DX: Z48.815 Encounter for surgical aftercare following surgery on the digestive system (principal) ==

== ENCOUNTER 2021-06-07 02:14 | Outpatient (CLI) | payer MEDICARE, SELFPAY ==
[2021-06-07 08:18] LABS: HCT 39.9 % (36.0-46.0); HGB 12.8 g/dL (11.2-15.7); MCH 28.4 pg (27.0-33.0); MCHC 32.1 % (32.0-36.0); MCV 88.5 fL (80-95); MPV 9.6 fL (8.0-11.0); Platelet Count 278 10^3/uL (130-400); RBC 4.51 10^6/uL (3.93-5.22); RDW 13.1 % (11.7-14.6); RDW-SD 42.5 fL; WBC 5.64 10^3/uL (4.4-10.8)
[2021-06-07 09:22] LABS: ALT 25 U/L (14-59); AST 14 U/L (15-37); Albumin 3.9 g/dL (3.4-5.0); Alkaline Phosphatase 99 U/L (46-116); Anion Gap 5.3 mmol/L (3-11); BUN 15 mg/dL (7-18); Bilirubin, Total 1.1 mg/dL (0.2-1.0); CO2 29.7 mmol/L (21.0-32.0); CREATININE 0.8 mg/dL (0.55-1.02); Calcium 8.8 mg/dL (8.5-10.1); Calculated LDL 122 mg/dL (<100); Chloride 105 mmol/L (98-107); Cholesterol 223 mg/dL (<200); Glucose 88 mg/dL (74-106); HDL Cholesterol 89 mg/dL (40-60); Potassium 4.3 mmol/L (3.5-5.1); Sodium 140 mmol/L (136-145); TSH (W/Ref FT4) 1.87 uIU/mL (0.36-3.74); Total Protein 7.1 g/dL (6.4-8.2); Triglyceride 61 mg/dL (<150)
== END 2021-06-07 02:15 | disposition home or self-care (01) ==
LOC: LBO 02:14
PROVIDERS: PCP Family Medicine; Visit Provider Family Medicine
DX: F32.9 Major depressive disorder, single episode, unspecified (principal); I10 Essential (primary) hypertension; R53.83 Other fatigue; Z13.6 Encounter for screening for cardiovascular disorders
CPT/HCPCS: 36415; 80053; 80061; 85027; 84443

== ENCOUNTER 2021-07-14 01:02 | Outpatient (CLI) | payer MEDICARE, SELFPAY ==
--- NOTE | 2021-07-14 06:45 | DI.DEXA_ITS ---
Exam(s) XR DEXA BONE DENSITY W/WO ASHLEY EXAM: XR DEXA BONE DENSITY W/WO ASHLEY CLINICAL HISTORY: screening for osteoporosis in postmenopausal woman,z78.0 TECHNIQUE: [place] C densitometer COMPARISON: No exams were available for comparison FINDINGS: Lateral view of the thoracic and lumbar spine shows no evidence of compression fractures. Degenerati ve disc changes are present with disc space narrowing greater anteriorly contributing to thoracic kyp hosis. Bone mineral density measurements of the lumbar spine correspond to a total T-score of -2.4, in the osteopenic range Bone mineral density measurements of the left hip correspond to a total T-score of -1.2 . The femora l neck T-score is -1.1, in the osteopenic range.. The left forearm bone mineral density measurements correspond to a T-score of the distal 3rd of -3.9 , in the osteoporotic range.. IMPRESSION: Osteoporosis of the left forearm. Osteopenia of the left hip and lumbar spine.
== END 2021-07-14 01:22 ==
PROVIDERS: PCP Family Medicine; Visit Provider Family Medicine
DX: M81.0 Age-related osteoporosis without current pathological fracture (principal); M85.88 Other specified disorders of bone density and structure, other site; Z78.0 Asymptomatic menopausal state
CPT/HCPCS: 77080

== ENCOUNTER 2021-12-21 10:17 | Outpatient (CLI) | payer MEDICARE, SELFPAY ==
[2021-12-21 12:28] LABS: HCT 39.4 % (36.0-46.0); MCH 28.7 pg (27.0-33.0); MCV 87 fL (80-95); MPV 10.4 fL (8.0-11.0); Platelet Count 302 10^3/uL (130-400); RBC 4.53 10^6/uL (3.93-5.22); RDW 13.2 % (11.7-14.6); RDW-SD 41.8 fL; WBC 6.83 10^3/uL (4.4-10.8)
[2021-12-21 13:43] LABS: ALT 22 U/L (14-59); AST 15 U/L (15-37); Albumin 3.9 g/dL (3.4-5.0); Alkaline Phosphatase 83 U/L (46-116); Anion Gap 9.1 mmol/L (3-11); BUN 18 mg/dL (7-18); Bilirubin, Total 1.1 mg/dL (0.2-1.0); CO2 25.9 mmol/L (21.0-32.0); CREATININE 0.7 mg/dL (0.55-1.02); Chloride 105 mmol/L (98-107); Estimated GFR 92.41 (mL/min/1.73m2); Glucose 91 mg/dL (74-106); Potassium 4.3 mmol/L (3.5-5.1); Sodium 140 mmol/L (136-145); Total Protein 7.6 g/dL (6.4-8.2); Vitamin B12 349 pg/mL (193-986)
[2021-12-21 13:48] LABS: Calcium 9.8 mg/dL (8.5-10.1)
== END 2021-12-21 10:18 | disposition home or self-care (01) ==
LOC: LOS 10:18
PROVIDERS: PCP Family Medicine; Referring Provider Family Medicine; Visit Provider Family Medicine
DX: R10.9 Unspecified abdominal pain (principal); R53.83 Other fatigue; D64.9 Anemia, unspecified
CPT/HCPCS: 36415; 80053; 85027; 82607

== ENCOUNTER 2021-12-30 16:26 | Emergency (ER) | payer MEDICARE, SELFPAY ==
[2021-12-30 16:31] VITALS: BP 146/76; PULSE 97; RESP 17; TEMP 36.6; O2SAT 97
--- NOTE | 2021-12-30 17:15 | RT.EKG_ITS ---
APPROVED REPORT Exam: Resting ECG Reason for Exam: headache, vision change Patient Location: E HR:79 bpm ECG Measurements Heart Rate 79 AXIS SC 174 P 31 QRSd 71 QRS 15 QT 380 T 7 QTc 437 Conclusion Sinus rhythm...normal P axis, V-rate 60- 99 sinus rhythm, normal axis, normal intervals, nonr ischemic
[2021-12-30] MEDS: Tetracaine 0.5% 4 ML BTL OP (17:40)
[2021-12-30 18:11] LABS: Abs Immature Grans 0.02 10^3/uL (0.0-0.06); Absolute Basophil Count 0.05 10^3/uL (0.0-0.2); Absolute Lymphocyte Count 2.98 10^3/uL (1.2-3.4); Absolute Monocyte Count 0.51 10^3/uL (0.1-0.8); Absolute Neutrophil Count 3.21 10^3/uL (1.2-6.7); Basophils % 0.7; ESR 17 mm/hr (0-30); Eosinophils % 1.5; HCT 38.3 % (36.0-46.0); HGB 12.8 g/dL (11.2-15.7); Immature Grans % 0.3; Lymphocytes % 43.4; MCH 29.1 pg (27.0-33.0); MCHC 33.4 % (32.0-36.0); MCV 87 fL (80-95); MPV 10.2 fL (8.0-11.0); Monocytes % 7.4; Neutrophils % 46.7; Platelet Count 290 10^3/uL (130-400); RDW 13.1 % (11.7-14.6); RDW-SD 41.8 fL; WBC 6.87 10^3/uL (4.4-10.8)
[2021-12-30 18:29] LABS: ALT 23 U/L (14-59); AST 16 U/L (15-37); Albumin 4.1 g/dL (3.4-5.0); Alkaline Phosphatase 87 U/L (46-116); Anion Gap 8.5 mmol/L (3-11); BUN 19 mg/dL (7-18); Bilirubin, Total 0.7 mg/dL (0.2-1.0); CO2 27.5 mmol/L (21.0-32.0); CREATININE 0.8 mg/dL (0.55-1.02); Calcium 9.2 mg/dL (8.5-10.1); Chloride 107 mmol/L (98-107); Estimated GFR 78.72 (mL/min/1.73m2); Glucose 110 mg/dL (74-106); Magnesium 1.9 mg/dL (1.8-2.4); Potassium 4.1 mmol/L (3.5-5.1); Sodium 143 mmol/L (136-145); TSH 2.01 uIU/mL (0.36-3.74); Total Protein 7.6 g/dL (6.4-8.2)
--- NOTE | 2021-12-30 19:10 | DI.CT_ITS ---
Exam(s) CT BRAIN NECK CTA EXAM: CT BRAIN NECK CTA CLINICAL HISTORY: left vertical, monocular diplopia. TECHNIQUE: Imaging Protocol: Axial CT angiography was performed with multi-slice acquisition and mu lti-planar and/or 3D reconstructions. CONTRAST MATERIAL: Intravenous: Omnipaque 350 contrast volume:85 mL COMPARISON: No exams were available for comparison FINDINGS: CT Head W/O and W: Ventricles and Extra axial spaces: Normal in size and morphology for the patient's age. Hemorrhage: None. Cerebral parenchyma: There is no acute territorial infarct identified. Midline shift: None. Brainstem/Cerebellum: Normal. Calvarium: Normal. Visualized Paranasal sinuses/Mastoids: Clear. Soft Tissues: Unremarkable. Enhancement: Unremarkable. CTA Neck W: Common Carotid: Right: No dissection, occlusion or significant stenosis. Left: No dissection, occlusion or significant stenosis. External Carotid: Right: No occlusion or significant stenosis. Left: No occlusion or significant stenosis. Internal Carotid: Right: No dissection, occlusion or significant stenosis. Left: No dissection, occlusion or significant stenosis. Vertebral Artery: Right: No dissection, occlusion or significant stenosis. Left: No dissection, occlusion or significant stenosis. Lung Apices: Normal. Bones: Within normal limits for the patient's age. Soft Tissues: Normal. Thyroid gland: Unremarkable. CTA Brain W: Internal Carotid Arteries: Normal. Atherosclerosis is present. Anterior Cerebral Arteries: Right: No aneurysm, occlusion or significant stenosis. Left: No aneurysm, occlusion or significant stenosis. Middle Cerebral Arteries: Right: No aneurysm, occlusion or significant stenosis. Left: No aneurysm, occlusion or significant stenosis. Posterior Cerebral Arteries: Right: No aneurysm, occlusion or significant stenosis. Left: No aneurysm, occlusion or significant stenosis. Vertebral Arteries: Right: No aneurysm, occlusion or significant stenosis. Left: No aneurysm, occlusion or significant stenosis. Basilar Artery: No aneurysm, occlusion or significant stenosis. IMPRESSION: 1. No large vessel occlusion or significant stenosis on the CT angiography of the head. 2. No acute intracranial process. 3. No occlusion or significant stenosis on the CT angiography of the neck. RADIATION DOSE DELIVERED: 1,813.74mGy.cm Total DLP DATA REPOSITORY: All CT scans at this facility are submitted to the National Radiology Data Registry (NRDR) Dose Index Registry (DIR) with the [employer] (A[employer]). RADIATION OPTIMIZATION: All CT scans at this facility use at least one of these dose optimization te chniques: automated exposure control; mA and/or kV adjustment per patient size (includes targeted exa ms where dose is matched to clinical indication); or iterative reconstruction.
[2021-12-30] MEDS: Omnipaque 350 MG/ML 100 ML BTL IJ (19:18)
--- NOTE | 2021-12-30 20:13 | DI.VRAD_ITS ---
PROCEDURE INFORMATION: Exam: CTA Head With Contrast, Arteriography Exam date and time: 12/30/2021 6:59 PM Age: 71 years old Clinical indication: Pain; Patient HX: Left vertical, monocular diplopia TECHNIQUE: Imaging protocol: Computed tomographic angiography of the head with contrast. Exam focused on the arteries. 3D rendering (Not supervised by radiologist): MIP and/or 3D reconstructed images were created by the technologist. Radiation optimization: All CT scans at this facility use at least one of these dose optimization techniques: automated exposure control; mA and/or kV adjustment per patient size (includes targeted exams where dose is matched to clinical indication); or iterative reconstruction. Contrast material: OMNI-PAQUE 350; Contrast volume: 85 ml; Contrast route: INTRAVENOUS (IV); COMPARISON: No relevant prior studies available. FINDINGS: ANTERIOR CIRCULATION: Right internal carotid artery: Intracranial segment is patent with no significant stenosis. No aneurysm. Right middle cerebral artery: No occlusion or significant stenosis. No aneurysm. Right anterior cerebral artery: No occlusion or significant stenosis. No aneurysm. Left internal carotid artery: Intracranial segment is patent with no significant stenosis. No aneurysm. Left middle cerebral artery: No occlusion or significant stenosis. No aneurysm. Left anterior cerebral artery: No occlusion or significant stenosis. No aneurysm. POSTERIOR CIRCULATION: Right vertebral artery: No occlusion or significant stenosis. No aneurysm. Left vertebral artery: No occlusion or significant stenosis. No aneurysm. Basilar artery: No occlusion or significant stenosis. No aneurysm. Right posterior cerebral artery: No occlusion or significant stenosis. No aneurysm. Left posterior cerebral artery: No occlusion or significant stenosis. No aneurysm. Brain: Aguilar-white matter differentiation is within normal limits. No mass effect or midline shift. There are mild nonspecific patchy foci of periventricular white matter hypodensity, probably due to chronic microvascular ischemic changes. Sulci and basilar cisterns are prominent due to parenchymal volume loss. No extra-axial fluid collection. Cerebral ventricles: No ventriculomegaly. Bones/joints: Unremarkable. No acute fracture. Soft tissues: Unremarkable. IMPRESSION: No major vessel cut off or high-grade stenosis in the arteries of the xlofzz-ko-Szvibx. PROCEDURE INFORMATION: Exam: CTA Neck With Contrast Exam date and time: 12/30/2021 6:59 PM Age: 71 years old Clinical indication: Pain; Patient HX: Left vertical, monocular diplopia TECHNIQUE: Imaging protocol: Computed tomographic angiography of the neck with contrast. 3D rendering (Not supervised by radiologist): MIP and/or 3D reconstructed images were created by the technologist. Radiation optimization: All CT scans at this facility use at least one of these dose optimization techniques: automated exposure control; mA and/or kV adjustment per patient size (includes targeted exams where dose is matched to clinical indication); or iterative reconstruction. Contrast material: OMNI-PAQUE 350; Contrast volume: 85 ml; Contrast route: INTRAVENOUS (IV); COMPARISON: No relevant prior studies available. FINDINGS: Right common carotid artery: No stenosis. No dissection or occlusion. Right internal carotid artery: No stenosis of the extracranial segment. No dissection or occlusion. Right external carotid artery: No occlusion or stenosis of the origin. Left common carotid artery: No stenosis. No dissection or occlusion. Left internal carotid artery: No stenosis of the extracranial segment. No dissection or occlusion. Left external carotid artery: No occlusion or stenosis of the origin. Right vertebral artery: No stenosis. No dissection or occlusion. Left vertebral artery: No stenosis. No dissection or occlusion. Soft tissues: Normal. No significant soft tissue swelling. Bones/joints: No acute fracture. IMPRESSION: No stenosis or occlusion. REFERENCES: NASCET CRITERIA. The degree of stenosis in the cervical segment of the internal carotid artery is based on NASCET criteria. Normal is no stenosis. Mild is less than 50% stenosis. Moderate is 50-69% stenosis. Severe is 70% to 99% stenosis. Total occlusion is no detectable patent lumen. Dictated and Authenticated by: Mateo Sidhu MD. Ordering:SERGIO Peng MD
--- NOTE | 2021-12-30 20:34 | ED.GENADUL_ITS ---
Discharge Plan Disposition Patient Disposition: HOME Condition: Stable Discharge Details Clinical Impression: Ophthalmalgia, Diplopia Primary Care Provider: Rajani Negron ED Provider: Ginette Patel Home Meds and New Rx's Prescriptions: Continued losartan 25 mg tablet 25 mg PO DAILY clobetasol [Temovate] 0.05 % ointment 1 applic topical ONCE bupropion HCl [Wellbutrin XL] 150 mg tablet extended release 24 hr 150 mg PO QAM Qty: 30 6RF flu vacc [id number] 6mos up(PF) 60 mcg (15 mcg x 4)/0.5 mL syringe 0.5 ml IM ONCE Qty: 0.5 0RF acetaminophen [Tylenol Extra Strength] 500 mg tablet 1,000 mg PO PRN Discharge Instructions Additional Instructions: You have an appointment tomorrow at [facility] at [address]hl [address] [place] [address] [address] Please return should you have new or worsening complaints You may take Tylenol as needed as needed for discomfort Referrals: Sharif Diehl [ [facility] STAFF PHYSICIAN] - Discharge Data Discharge Date/Time-TO BE ENTERED AT DEPARTURE: 12/30/21 21:08 Medical Decision Making CTA head and neck per virtual radiology was negative for acute abnormality Diagnostic labs are reassuring including negative EKG Discussed with Dr. Tellez, wireless communications engineer at [facility] and he will see patient in the office tomorrow at 940 Patient visual acuity is 20/200 in the affected eye and 20/100 in the unaffected eye, does not wear correction Intraocular pressure is 16 in the affected eye At this time, patient exam is relatively benign although I do think she needs close outpatient reassessment with ophthalmology and neurology follow-up Return precautions were discussed and patient expressed understanding, discharged home in stable condition with ophthalmology appointment tomorrow at 940 Medical Records Medical records reviewed: Yes I reviewed the patient's medical records. Lab Data Lab results reviewed: Yes I reviewed the patient's lab results. HPI General Date/Time Provider Initiated Documentation: 12/30/21 16:44 . HPI Narrative: This 71-year-old female with history of SVT presents with report of blurred vision with double vision and retro-orbital left eye pain which began on of this week and have progressed to diplopia which started today. She denies prior history of similar symptoms in the past. She states that the diplopia started at around 1:00 today. She states of both eyes open she does not experience the symptoms with with 1 eye closed the left eye of the affected eye. She denies any headache. She describes the pain as an ache behind her left eye. She denies any curtain sensation or loss of vision. She is up and paresthesias for the past several months and has been referred to but not yet evaluated by neurology. She denies any prior imaging of her head. She denies any new speech or sensation changes. She denies any speech change. She denies any new medications. She denies any neck pain. She denies any current dizziness. Denies any pain with movement of her eye. Related Data Home Medications Medication Instructions Recorded Confirmed acetaminophen 500 mg tablet 1,000 mg PO PRN 09/09/18 12/30/21 (Tylenol Extra Strength) losartan 25 mg tablet 25 mg PO DAILY 06/28/20 12/30/21 clobetasol 0.05 % topical ointment 1 applic topical ONCE 05/26/21 12/30/21 (Temovate) bupropion HCl 150 mg 24 hr tablet, 150 mg PO QAM #30 tabs 12/21/21 12/30/21 extended release (Wellbutrin XL) Previous Rx's Medication Instructions Recorded bupropion HCl 150 mg 24 hr tablet, 150 mg PO QAM #30 tabs 12/21/21 extended release (Wellbutrin XL) Allergies Allergy/AdvReac Type Severity Reaction Status Date / Time ibuprofen AdvReac Intermediate horrible Verified 12/30/21 16:52 headaches' Sulfa (Sulfonamide AdvReac Intermediate Agitation Verified 12/30/21 16:52 Antibiotics) General Stated Complaint: EyeProblem MARCEL: 3 Review of Systems All systems reviewed & are unremarkable except as noted in HPI and below PFSH All Active Problems (Updated 12/30/21 @ 21:00 by GUILLERMINA Vu) Ophthalmalgia (Acute) Diplopia (Acute) Seasonal affective disorder (Acute) Sad (Acute) Paresthesias (Acute) Osteoporosis (Chronic) 06/2021, DEXA scan at [facility], 1 out of 3 sites positive for osteoporosis ( t score- -3.7) at the forearm, T score is -2.4 at lumbar back Essential hypertension (Acute) Dysphagia (Acute) Thrombosed external hemorrhoid (Acute) Lichen sclerosus et atrophicus (Acute) Depression (Acute 09/29/12) assoc with SAD SVT (supraventricular tachycardia) (Acute 09/01/14) 08/30. Symptomatic. Neg CXR, labs, Stress echo. Short runs noted on holter 02/01 Zio: PSVT MPI neg Surgical History (Updated 05/26/21 @ 08:38 by Dwaine Angela MD) Colonoscopy - MAC (12/23/12) DR. GASCA; NEG History of dental surgery Status post ORIF of fracture of ankle (01/10/18) Tonsillectomy and adenoidectomy Family History (Updated 05/27/21 @ 11:00 by Sole Roper) Mother Essential hypertension Heart disease CT @ 75 Mental disorder vascular dementia Stroke Father , 94 Mental disorder Depression Depression Brother Diabetes Brother Cancer Depression Grandfather Heart disease Grandfather Heart disease Grandmother Personal history of malignant neoplasm Cervical or uterine Son Depression Social History (Updated 05/27/21 @ 11:26 by Sole Roper) Smoking/Tobacco Use Status: Never Second Hand Exposure: Yes Smoking risk assessment performed?: Yes Alcohol Intake: former Drug use: Never Substance use type: does not use Details: alcohol: last time, December Caregiver/Support person: No Household members: spouse Housing: house Communication Needs: None Do you need help understanding health information?: Rarely Pets and animals: Yes Pets and animals: cat(s) Sexually active: Yes Do you think of yourself as: straight/heterosexual Current gender identity: female What is your relationship status?: How often do you talk on the phone with friends or family?: once per week How often do you get together with friends or relatives?: once per week How often do you attend sabianism or yazidi services?: 1-3 times per year Do you belong to any clubs or organized social groups?: yes Panel score (0-1 are the most socially isolated patients): 2 What type of physical activity do you participate in: walking Duration: 60-90 minutes/day Frequency: daily Adeline/Lutheran: Anabaptism Special adeline needs: No Seatbelt use: always Drive intox or ride w/intox cdl company driver: No Do you feel safe at home: Yes Do you feel safe in your relationship?: Yes History History Para 2 Hx # Term Pregnancies Multiple births Hx # Pregnancies Ectopic pregnancies AB induced Hx Number of Living Children AB spontaneous Exam Const General: cooperative, comfortable and no acute distress Eyes Alignment and Position: alignment normal Eyelids: eyelids normal Conjunctivae: conjunctivae normal Sclera: sclerae normal Cornea: corneas normal Pupils: PERRL EOM: EOM intact bilaterally and No nystagmus Neck Other: no carotid bruit Resp Effort & Inspection: normal respiratory effort Auscultation: clear to auscultation bilaterally Cardio Rate: regular rate Rhythm: regular rhythm Skin General skin exam: no rashes or lesions noted Neuro General: patient alert, patient oriented x3 and no focal motor deficits Cranial Nerves: CN's II-XI intact bilaterally, tongue midline and no nystagmus Cognition: normal cognition Speech: speech normal Gait: normal gait Motor: strength 5/5 throughout Sensory Exam: no sensory deficits noted Course Vital Signs Vital signs: Vital Signs Temperature 36.6 C 12/30/21 16:31 Pulse 97 H 12/30/21 16:31 Respiratory Rate 17 12/30/21 16:31 Blood Pressure 146/76 H 12/30/21 16:31 Pulse Oximetry 97 12/30/21 16:31 Temperature 36.6 C 12/30/21 16:31 Temperature Source Tympanic 12/30/21 16:31 Pulse 97 H 12/30/21 16:31 Respiratory Rate 17 12/30/21 16:31 Respiratory Effort Non-Labored 12/30/21 16:34 Blood Pressure 146/76 H 12/30/21 16:31 Blood Pressure Position Sitting 12/30/21 16:31 Pulse Oximetry 97 12/30/21 16:31 Oxygen Delivery Method Room Air 12/30/21 16:31 Oxygen Flow Rate 0 12/30/21 16:31 Pain Level 4 12/30/21 16:31 Lab/Test Results Lab/Test Results: Laboratory Tests Range/Units 12/30/21 12/30/21 12/30/21 17:35 17:35 17:35 WBC (4.4-10.8) 10^3/uL 6.87 RBC (3.93-5.22) 10^6/uL 4.40 Hgb (11.2-15.7) g/dL 12.8 Hct (36.0-46.0) % 38.3 MCV (80-95) fL 87 MCH (27.0-33.0) pg 29.1 MCHC (32.0-36.0) % 33.4 RDW (11.7-14.6) % 13.1 Plt Count (130-400) 10^3/uL 290 MPV (8.0-11.0) fL 10.2 Immature Gran % 0.3 Neutrophils % 46.7 Lymphocytes % 43.4 Monocytes % 7.4 Eosinophils % 1.5 Basophils % 0.7 Nucleated RBC % (0.0-0.3) % 0.0 Absolute Neutrophils (1.2-6.7) 10^3/uL 3.21 Absolute Lymphocytes (1.2-3.4) 10^3/uL 2.98 Absolute Monocytes (0.1-0.8) 10^3/uL 0.51 Absolute Eosinophils (0.0-0.7) 10^3/uL 0.10 Absolute Basophils (0.0-0.2) 10^3/uL 0.05 ESR (0-30) mm/hr 17 Sodium (136-145) mmol/L 143 Potassium (3.5-5.1) mmol/L 4.1 Chloride (98-107) mmol/L 107 Carbon Dioxide (21.0-32.0) mmol/L 27.5 Anion Gap (3-11) mmol/L 8.5 BUN (7-18) mg/dL 19 H Creatinine (0.55-1.02) mg/dL 0.8 Est GFR (CKD-EPI 2020) (mL/min/1.73m2) 78.72 Glucose (74-106) mg/dL 110 H Calcium (8.5-10.1) mg/dL 9.2 Magnesium (1.8-2.4) mg/dL 1.9 Total Bilirubin (0.2-1.0) mg/dL 0.7 AST (15-37) U/L 16 ALT (14-59) U/L 23 Alkaline Phosphatase (46-116) U/L 87 Total Protein (6.4-8.2) g/dL 7.6 Albumin (3.4-5.0) g/dL 4.1 TSH (0.36-3.74) uIU/mL 2.01
== END 2021-12-30 21:08 | disposition home or self-care (01) ==
PROVIDERS: Emergency Provider Physician Assistant; PCP Family Medicine
DX: H53.2 Diplopia (principal); H57.12 Ocular pain, left eye
CPT/HCPCS: 36415; 70496; 70498; 80053; 85652; 93005; 99285; 83735; 84443; 85025; 93010; 99284; J3490

== ENCOUNTER → 2022-03-08 09:48 | Outpatient (BNVA) | payer MEDICARE, SELFPAY | PROVIDERS: PCP Family Medicine; Referring Provider Family Medicine; Visit Provider Psychiatry & Neurology Neurology | DX: G25.0 Essential tremor (principal); M79.602 Pain in left arm | CPT/HCPCS: 99214 ==

== ENCOUNTER 2022-04-18 02:53 | Outpatient (CLI) | payer MEDICARE, SELFPAY ==
--- NOTE | 2022-04-18 17:30 | DI.MAMMO_ITS ---
Exam(s) MAMMO SCREENING EXAM: MAMMO SCREENING CLINICAL HISTORY: screening TECHNIQUE: Mammograms were interpreted according to the usual protocol including computer analysis w S5 Wireless CAD system, tomosynthesis and C-view imaging. COMPARISON: 2012 through 2020 FINDINGS: The breasts are composed of scattered fibroglandular densities, Breast Density category B. No suspicious masses or suspicious microcalcifications are seen. No skin thickening or abnormal axillary lymph nodes are seen. There has been no significant change from prior exams. IMPRESSION: BI-RADS Category 1, Negative mammogram Yearly screening mammography is recommended. Breast Density - Category B, scattered fibroglandular densities. A negative radiographic report should not delay biopsy if a dominant or clinically suspicious mass is present. Up to ten percent of cancers are not identified on mammography. A negative report may reinforce clinical impression. Adenosis and dense breasts may obscure an underlying neoplasm. False positive reports average 6 to 10%. Patient will receive a letter notifying them of these results.
== END 2022-04-18 03:13 ==
PROVIDERS: PCP Family Medicine; Visit Provider Obstetrics & Gynecology
DX: Z12.31 Encounter for screening mammogram for malignant neoplasm of breast (principal)
CPT/HCPCS: 77063; 77067

== ENCOUNTER 2022-06-18 02:07 | Outpatient (CLI) | payer MEDICARE, SELFPAY ==
--- NOTE | 2022-06-18 07:00 | DI.RAD_ITS ---
Exam(s) XR ELBOW RT COMPLETE EXAM: XR ELBOW RT COMPLETE CLINICAL HISTORY: right elbow pain,M25.521. TECHNIQUE: 2D digital imaging was performed. COMPARISON: No exams were available for comparison FINDINGS: 3 views There is soft tissue swelling over the dorsal aspect of the forearm. No swelling of the olecranon bu rsa. No fracture nor joint effusion in the elbow. Radial head and neck appear unremarkable as do th e epicondyles. IMPRESSION: No significant osseous findings. DATA REPOSITORY: RADIATION DOSE DELIVERED:
--- NOTE | 2022-06-18 07:00 | DI.RAD_ITS ---
Exam(s) XR THORACIC SPINE COMPLETE EXAM: XR THORACIC SPINE COMPLETE CLINICAL HISTORY: thoracic spine pain,M54.50,M54.6. TECHNIQUE: 2D digital imaging was performed. COMPARISON: No exams were available for comparison FINDINGS: Two views-AP and lateral. No evidence of compression fracture or listhesis. Multilevel disc space narrowing noted as well as a nterior osseous lipping. No osseous lesions. No scoliosis nor abnormal widening paraspinal lines. IMPRESSION: No acute osseous findings in the thoracic spinal column. DATA REPOSITORY: RADIATION DOSE DELIVERED:
== END 2022-06-18 02:27 ==
PROVIDERS: PCP Family Medicine; Visit Provider Family Medicine
DX: M51.34 Other intervertebral disc degeneration, thoracic region; M25.521 Pain in right elbow; M79.89 Other specified soft tissue disorders
CPT/HCPCS: 72072; 73080

== ENCOUNTER 2022-08-16 03:30 | Outpatient (CLI) | payer MEDICARE, SELFPAY ==
--- NOTE | 2022-08-16 08:45 | DI.RAD_ITS ---
Exam(s) XR CERVICAL SPINE COMP 4-5V EXAM: XR CERVICAL SPINE COMP 4-5V CLINICAL HISTORY: neck pain, headache,LT SIDED TINNITUS,H93.12,M54.2. TECHNIQUE: 2D digital imaging was performed. COMPARISON: No exams were available for comparison FINDINGS: Five views: No evidence of fracture, listhesis, nor offset of the spine laminar line. Main finding here is a-typ e disc space narrowing at C5-6 level. Also right-sided Luschka joint osteophyte at this level. Othe r disc spaces exhibit normal height including C6-7. Minimal facet joint degenerative changes. No ce rvical ribs. No osseous lesions IMPRESSION: Chronic degenerative disc disease at C5-6 level. DATA REPOSITORY: RADIATION DOSE DELIVERED:
== END 2022-08-16 03:50 ==
LOC: DI 03:31
PROVIDERS: PCP Family Medicine; Visit Provider Family Medicine
DX: H93.12 Tinnitus, left ear (principal); M50.322 Other cervical disc degeneration at C5-C6 level
CPT/HCPCS: 72050

== ENCOUNTER 2022-08-16 04:52 | Outpatient (CLI) | payer MEDICARE, SELFPAY ==
[2022-08-16 15:59] LABS: ALT 24 U/L (14-59); AST 15 U/L (15-37); Albumin 3.7 g/dL (3.4-5.0); Alkaline Phosphatase 90 U/L (46-116); Anion Gap 7.5 mmol/L (3-11); BUN 20 mg/dL (7-18); Bilirubin, Total 0.9 mg/dL (0.2-1.0); CO2 26.5 mmol/L (21.0-32.0); CREATININE 0.8 mg/dL (0.55-1.02); Calcium 8.7 mg/dL (8.5-10.1); Chloride 105 mmol/L (98-107); Estimated GFR 78.24 (mL/min/1.73m2); Glucose 150 mg/dL (74-106); Potassium 3.8 mmol/L (3.5-5.1); Sodium 139 mmol/L (136-145); TSH (W/Ref FT4) 1.28 uIU/mL (0.36-3.74); Total Protein 7.5 g/dL (6.4-8.2)
[2022-08-16 16:05] LABS: Vitamin D 25 Total 13.1 ng/mL (30-100)
[2022-08-17 19:38] LABS: Parathyroid Hormone,Intact 55 pg/mL (19-88)
== END 2022-08-16 04:53 | disposition home or self-care (01) ==
LOC: LBO 04:52
PROVIDERS: PCP Family Medicine; Visit Provider Family Medicine
DX: M81.0 Age-related osteoporosis without current pathological fracture (principal); N18.9 Chronic kidney disease, unspecified
CPT/HCPCS: 36415; 80053; 82306; 82340; 83970; 84443

== ENCOUNTER 2022-08-18 10:59 | Outpatient (REF) | payer MEDICARE, SELFPAY ==
[2022-08-20 09:31] LABS: Calcium Urine 19.6 mg/dL (See Note); Calcium Urine 24 hr 196 mg/dL (100-300); Timed Urine Volume 1000 mL
== END 2022-08-18 11:00 | disposition home or self-care (01) ==
LOC: LBN 10:59
PROVIDERS: PCP Family Medicine; Visit Provider Family Medicine
DX: M81.0 Age-related osteoporosis without current pathological fracture (principal)
CPT/HCPCS: 81050; 82340

== ENCOUNTER 2022-10-12 00:13 | Outpatient (CLI) | payer MEDICARE, SELFPAY ==
--- NOTE | 2022-10-12 07:30 | DI.MRI_ITS ---
Exam(s) MR BRAIN WO/W EXAM: MR BRAIN WO/W CLINICAL HISTORY: gait disorder,NEUROGENIC,R26.89 TECHNIQUE: Multiplanar multisequence MRI of the brain was performed. CONTRAST MATERIAL: IV Contrast: 12 mL of Dotarem contrast administered. COMPARISON: CT CT BRAIN NECK CTA from 12/30/2021 FINDINGS: VENTRICLES AND EXTRA AXIAL SPACES: Normal in size and morphology for the patient's age. HEMORRHAGE: None. CEREBRAL PARENCHYMA: No focus of restricted diffusion to suggest acute infarct. No space-occupying le robert identified. There are multiple foci of hyperintense signal seen in the white matter on the FLAIR and T2 weighted images most consistent with small vessel ischemic disease. MIDLINE SHIFT: None. BRAINSTEM/CEREBELLUM: Normal. CALVARIUM: Normal. ENHANCEMENT: No suspicious enhancement identified. VISUALIZED PARANASAL SINUSES/MASTOIDS: Clear. [place] OF CHEEK: Normal flow void. PITUITARY GLAND: Unremarkable. OTHER FINDINGS: IMPRESSION: 1. Multiple foci of hyperintense signal seen in the white matter most consistent with small vessel is chemic disease. 2. No intracranial mass or enhancing lesion. DATA REPOSITORY:
[2022-10-12] MEDS: Normal Saline Flush 10 ML SYR IVP (14:35)
[2022-10-12] MEDS: Gadoterate meglumine 20 ML VIAL 12 ML IVP (14:36)
== END 2022-10-12 00:33 ==
LOC: DI 00:14
PROVIDERS: PCP Family Medicine; Visit Provider Family Medicine
DX: I67.89 Other cerebrovascular disease (principal)
CPT/HCPCS: 70553

== ENCOUNTER → 2022-10-30 12:37 | Outpatient (BNVA) | payer MEDICARE, SELFPAY | PROVIDERS: PCP Family Medicine; Referring Provider Family Medicine; Visit Provider Psychiatry & Neurology Neurology | DX: R26.89 Other abnormalities of gait and mobility (principal); G25.0 Essential tremor; R73.9 Hyperglycemia, unspecified; R29.898 Other symptoms and signs involving the musculoskeletal system | CPT/HCPCS: 99214 ==

== ENCOUNTER 2022-11-05 04:32 | Outpatient (CLI) | payer MEDICARE, SELFPAY ==
[2022-11-05 12:54] LABS: Calculated LDL 137 mg/dL (<100); Cholesterol 238 mg/dL (<200); HDL Cholesterol 77 mg/dL (40-60); Triglyceride 124 mg/dL (<150); Vitamin B12 407 pg/mL (193-986)
[2022-11-05 13:10] LABS: Hemoglobin A1C 5.8 % (<5.7)
[2022-11-06 14:40] LABS: Albumin g/dL 4.4 g/dL (3.6-5.2); Total Protein 7.4 g/dL (6.3-8.2)
== END 2022-11-05 04:33 | disposition home or self-care (01) ==
LOC: LOS 04:32
PROVIDERS: PCP Family Medicine; Visit Provider Psychiatry & Neurology Neurology
DX: I10 Essential (primary) hypertension (principal); R73.09 Other abnormal glucose; R26.89 Other abnormalities of gait and mobility; G62.9 Polyneuropathy, unspecified
CPT/HCPCS: 36415; 80061; 82607; 83036; 84165

== ENCOUNTER → 2022-11-20 02:07 | Outpatient (CLI) | payer MEDICARE, SELFPAY ==
--- NOTE | 2022-11-20 12:50 | DI.MRI_ITS ---
Exam(s) MR CERVICAL SPINE WO EXAM: MR CERVICAL SPINE WO CLINICAL HISTORY: ?myelopathy,gait abnormality,rt leg weakness,r26.9,r29.898 TECHNIQUE: Multiplanar multisequence MRI of the cervical spine was performed without intravenous con trast. COMPARISON: No exams were available for comparison FINDINGS: CERVICOMEDULLARY JUNCTION: Intact with no evidence of cerebellar tonsillar ectopia. No obvious abnor mality of the odontoid process. No evidence of Chiari 1 malformation. CERVICAL SPINAL CORD: There is no abnormal signal in the cervical spinal cord evident on the sagittal T2 weighted images. However on the axial T2 weighted images there appears to be some central abnorm al cord signal at and below C6-7 level, extending to lower T1 level. There is no evidence of focal c ord atrophy nor focal cord swelling. No syringomyelia evident. OSSEOUS:There are no cervical fractures evident. No significant osseous lesions in the cervical vert ebrae. Cervical curvature is maintained with no abnormal straightening nor reversal. INDIVIDUAL LEVELS: C2-3: No disc herniation nor central canal stenosis. No foraminal stenosis. No facet arthropathy. C3-4: No disc herniation nor central canal stenosis.No facet arthropathy. No foraminal stenosis. C4-5: No disc herniation nor central canal stenosis.No facet arthropathy. No foraminal stenosis C5-6: This level exhibits advanced disc space narrowing and anterior osteophytes. Posteriorly there is no prominent disc herniation but central canal dimensions are lower normal. AP canal measurement is 9-10 mm. There is attenuation of the thecal sac No abnormal compression of the cervical cord. M ild bilateral foraminal stenosis due to small Luschka joint osteophytes at this level. C6-7: Normal disc height. Posterior annular bulging but no prominent disc herniation. Central canal dimensions are lower normal. No significant facet arthropathy. No significant foraminal stenosis a t this level. C7-T1: No disc herniation nor central canal stenosis. No facet arthropathy.No foraminal stenosis. IMPRESSION: 1. C5-6 finding as above, with mild central canal stenosis at this level. Also mild bilateral forami nal stenosis at this level. 2. Although not evident on the sagittal T2 sequence, on the axial images there is some signal abnorma lity in the central aspect of the lower cervical spinal cord at and below C6-7 extending to lower T1 level. There is a possibly that this may be due to motion artifact as this is not evident on the sag ittal images. If there are any clinical signs of myelitis than repeat study with contrast infusion w ould add sensitivity/specificity with respect to the presence of possible myelitis. DATA REPOSITORY:
--- NOTE | 2022-11-20 13:35 | DI.MRI_ITS ---
Exam(s) MR THORACIC SPINE WO EXAM: MR THORACIC SPINE WO CLINICAL HISTORY: ?meylopathy,gait abnormality,rt leg weakness,r26.9,r29.898 TECHNIQUE: Multiplanar multisequence MRI of the thoracic spine was performed without intravenous con trast. COMPARISON: No exams were available for comparison FINDINGS: OSSEOUS: There are no acute appearing thoracic vertebral fractures. There few benign intraosseous hem angiomas within thoracic vertebrae. There are no ominous osseous lesions in the thoracic vertebrae. There is a gradual kyphosis. No wedge fractures. THORACIC SPINAL CORD: There is no abnormal signal in the cervical spinal cord and no evidence of foca l cord atrophy nor focal cord swelling. There is no evidence of syringomyelia nor significant spinal cord dysraphism. There is no evidence of mass at the conus medullaris. The position of the conus me dullaris is at normal level. SIGNIFICANT INDIVIDUAL LEVEL FINDINGS: There is a posterior central-right paracentral disc protrusion at the T8-9 level. This indents the t hecal sac.. This disc protrusion extends posteriorly 3.5 mm and is approximately 8 mm wide. PARASPINAL TISSUES: No significant masses nor fluid collections evident. IMPRESSION: 1. There is a posterior oabcigk-sihga-onswp disc protrusion at the T8-T9 level. No other disc hernia tions evident. 2. 3. DATA REPOSITORY:
== END ==
PROVIDERS: PCP Family Medicine; Visit Provider Psychiatry & Neurology Neurology
DX: M51.24 Other intervertebral disc displacement, thoracic region (principal); M48.02 Spinal stenosis, cervical region; M99.61 Osseous and subluxation stenosis of intervertebral foramina of cervical region
CPT/HCPCS: 72141; 72146

== ENCOUNTER → 2022-11-22 12:50 | Outpatient (CLI) | payer MEDICARE, SELFPAY ==
--- NOTE | 2022-11-22 12:15 | DI.MRI_ITS ---
Exam(s) MR CERVICAL SPINE W EXAM: MR CERVICAL SPINE W CLINICAL HISTORY: C7 cord changes on MR w/o,gait abnormality, rt leg weaknes, r26.9,r29.898 TECHNIQUE: Multiplanar multisequence MRI of the cervical spine was performed without and with intrav enous contrast. Contrast injected was 14 mL Dotarem COMPARISON: MR MR CERVICAL SPINE WO from 11/20/2022 FINDINGS: Individual disc findings are as per on the recent dictation. With respect to the present contrast infused study, there is no abnormal enhancement in the spinal co rd. No syringomyelia. No cord atrophy nor focal cord swelling IMPRESSION: 1. No findings to suggest myelitis of the cervical spinal cord. 2. No evidence focal cord atrophy nor focal cord swelling and no dilatation of the central canal. 3. No evidence of cerebellar tonsillar ectopia/Chiari I malformation DATA REPOSITORY:
[2022-11-22 14:19] LABS: CREATININE 0.7 mg/dL (0.55-1.02); Estimated GFR 91.83 (mL/min/1.73m2)
[2022-11-22] MEDS: Gadoterate meglumine 20 ML VIAL IVP (14:23)
== END ==
PROVIDERS: PCP Family Medicine; Visit Provider Psychiatry & Neurology Neurology
DX: R29.898 Other symptoms and signs involving the musculoskeletal system
CPT/HCPCS: 72142; 82565

== ENCOUNTER → 2022-12-13 09:57 | Outpatient (BNVA) | payer MEDICARE, SELFPAY | PROVIDERS: PCP Family Medicine; Referring Provider Family Medicine; Visit Provider Physical Therapy Assistant | DX: Z12.11 Encounter for screening for malignant neoplasm of colon (principal); R13.10 Dysphagia, unspecified; K21.9 Gastro-esophageal reflux disease without esophagitis ==

== ENCOUNTER → 2022-12-13 13:05 | Outpatient (BNVA) | payer MEDICARE, SELFPAY | PROVIDERS: PCP Family Medicine; Referring Provider Family Medicine; Visit Provider Psychiatry & Neurology Neurology | DX: G25.0 Essential tremor (principal); R26.9 Unspecified abnormalities of gait and mobility; R29.898 Other symptoms and signs involving the musculoskeletal system | CPT/HCPCS: 95908; 99213 ==

== ENCOUNTER → 2022-12-20 07:34 | Outpatient (BNVA) | payer MEDICARE, SELFPAY | PROVIDERS: PCP Family Medicine; Referring Provider Family Medicine; Visit Provider Psychiatry & Neurology Neurology ==

== ENCOUNTER 2022-12-28 11:36 | Day surgery (SDC) | payer MEDICARE, SELFPAY ==
--- NOTE | 2022-12-27 20:35 | PDOC.DSDIS_ITS ---
Date of service: 12/28/22 Time of Service: 13:50 Discharge Plan Disposition Patient Disposition: Home Condition: Good Discharge Details Reason For Visit: stomach and colon scope Attending Provider: Talia Fajardo Primary Care Provider: Rajani Negron Home Meds and New Rx's Prescriptions: New pantoprazole [Protonix] 40 mg tablet,delayed release (DR/EC) 40 mg PO DAILY Qty: 30 12RF Continued losartan 25 mg tablet 25 mg PO DAILY estradiol 0.01 % (0.1 mg/gram) cream 1 g vaginal DAILY Qty: 42.5 1RF Rx Instructions: Apply a pea-sized amount of cream to the vulva daily clobetasol [Temovate] 0.05 % ointment 1 applic topical ONCE Qty: 60 1RF alendronate 70 mg tablet 70 mg PO QWEEK Qty: 13 3RF atorvastatin 40 mg tablet 40 mg PO QHS Qty: 90 3RF cholecalciferol (vitamin D3) 50 mcg (2,000 unit) capsule 200 mcg PO DAILY acetaminophen [Tylenol Extra Strength] 500 mg tablet 1,000 mg PO PRN Discontinued bisacodyl [Dulcolax (bisacodyl)] 5 mg tablet,delayed release (DR/EC) 5 mg PO ONCE Qty: 4 0RF Rx Instructions: Take per colonoscopy instructions provided by ordering providers office polyethylene glycol 3350 17 gram/dose powder 17 g PO ONCE Qty: 238 0RF Rx Instructions: Take per colonoscopy instructions provided by ordering providers office bisacodyl [Dulcolax (bisacodyl)] 5 mg tablet,delayed release (DR/EC) 5 mg PO ONCE Qty: 4 0RF Rx Instructions: Take per colonoscopy instructions provided by ordering providers office polyethylene glycol 3350 17 gram/dose powder 17 g PO ONCE Qty: 238 0RF Rx Instructions: Take per colonoscopy instructions provided by ordering providers office famotidine 20 mg tablet 20 mg PO BID Qty: 60 2RF Discharge Instructions Instructions: GERD (Gastroesophageal Reflux Disease) (GEN), Esophagitis (GEN) Additional Instructions: [facility] Colonoscopy Post-O p Instructions Instructions for Everyone who is given Anesthesia: For your safety, please do the following for the next twenty-four (24) hours: *Do Not operate a motor vehicle (car, truck, motorcycle, etc.) *Do Not drink alcoholic beverages or use any recreational drugs for the first 24 hours or while taking pain medications. The medications in your body may have a reaction that can be dangerous. *Do Not make any important decisions or sign any important papers. Findings: Mild esophagitis Colon polyps x3 Continue with lifestyle modifications: no alcohol, tobacco products, Aspirin or NSAID's (ibuprofen, Motrin, Naprosyn, aleve, etc), soda pop/any carbonated beverages, caffeine (including tea & chocolate), and acidic foods, (tomatoes, citrus, onions, peppermints) spicy or fried/fatty foods. Do not lie down for 30 minutes after eating, and do not eat 2 hours prior to bedtime. Avoid wearing tight fitting clothing/ belts Follow up: My office will send a letter in 2 to 3 weeks time with the results of the biopsies and the polyps, and when we want you to repeat the colonoscopy. 1. No lifting over 20 pounds or strenuous activity for the first 24 hours after your procedure. After 24 hours there are no restrictions on your activity but you may feel fatigued for a few days. 2. After you arrive home you may have a light meal and return to your normal diet as you can tolerate it without feeling sick to your stomach. 3. You may have a bloated, gaseous feeling in your belly (abdomen) after a colonoscopy. Passing gas and belching will help. Walking or lying down on your left side with your knees flexed may relieve the discomfort. Call the office at [phone] (Office) or [phone] (Hospital) right away if you notice any of the following: a.Vomiting of blood or ?coffee ground stools?. b.Rectal bleeding 1Tbsp, blood clots or continuous bleeding. c.Severe belly (abdominal) pain. d.A hard distended belly (abdomen) and an inability to pass gas. 4. Please don?t expect to have a normal BM (bowel movement) for 2-3 days after your procedure. 5. If there are questions regarding the findings of your procedure, please contact your doctor 6. If you are unable to contact your doctor with a problem, contact the hospital at [phone]. 7. Continue all your regular medications unless directed otherwise. I understand the above instructions and have no questions. 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
--- NOTE | 2022-12-27 20:40 | ENDO_ITS ---
Date of service: 12/28/22 Time of Service: 16:22 Endoscopy Report DATE OF PROCEDURE: 12/28/22 PRE-OP DIAGNOSIS: dysphagia /cough POST-OP DIAGNOSIS: other (Mild gastritis) SURGEON: Talia Fajardo ANESTHESIA TYPE: General:No Airway ESTIMATED BLOOD LOSS: 2 PATHOLOGY: other COMPLICATIONS: None DISPOSITION: no change PROCEDURE DESCRIPTION: After informed consent was obtained the patient was take to the procedure room and placed in a supine position. Monitors were applied and a time out was done. The patients name, date of , procedure type, allergies to medications and metal in their body was reviewed. A bite block was placed and the patient was sedated. Once sedated and comfortable the gastroscope was advanced through the oropharynx which was grossly normal into the esophagus. The proximal and mid- esophagus were normal. In the distal esophagus there was no: Varices, diverticula, stricture visualized today. The scope was advanced into the stomach and through the pylorus into the 3rd portion of the duodenum. The duodenum was noted to be normal. Biopsies were done, all specimens are retrieved and no bleeding is noted. The scope was retracted back into the stomach and biopsies were done to rule out H. pylori. There were no ulcers. There is some may be some mild gastritis in the antrum in a striped fashion. Biopsies are taken. The scope was retroflexed. The cardia and fundus were noted to be normal. There were no a hiatal hernia noted. The scope was retracted back into the esophagus and biopsies were done of the GE junction to rule out Reynolds's. The Z line was irregular.
--- NOTE | 2022-12-27 20:45 | W.COLOREPORT ---
Date of service: 12/28/22 Time of Service: 16:19 Colonoscopy Report Date of procedure: 12/28/22 Pre-op diagnosis general: CRC screening Post-op diagnosis procedure note: other (Polyps) Surgeon: Talia Fajardo Anesthesia Type: General:No Airway Estimated blood loss (mL): 2 Pathology: other Complications: None Disposition: same day Prep: Miralax/Dulcolax Retraction Time: 18 Procedure Description: After informed consent was obtained the patient was taken to the procedure room and placed in a left decubitous position. Monitors were applied and a time out was done. The patients name, date of , procedure, allergies to medications and metal in their body was reviewed. The patient was then sedated. Once sedated and comfortable a rectal exam was done. External exam was normal. Internal exam revealed a normal sphincter tone and no palpable masses. The scope was then introduced and retrofelexed. No internal hemorrhoids were identified. The scope was then advanced to the cecum without difficulty. The TI and appendiceal orifice were identified. The prep was BBPS 3 in all segments for total of 9. The scope was then slowly retracted over 18 minutes back into the rectum. There are no AVMs or diverticula visualized today. She has a 1 cm flat polyp in the cecum. This is removed with a cold snare. All specimen is retrieved and no bleeding is noted. 2 endoclips were placed across the defect. She has x2 polyps at 40 cm. Each of these is a flat 0.5 cm polyp. They are each removed each with a cold biting forcep. All specimen is retrieved and no bleeding is noted.. The scope was removed and the patient was woken up and taken back to Same day surgery in stable condition. The patient tolerated the procedure well and there were no immediate complications. Follow up: The patient should follow up in 3-5 years unless they develop changes in bowel habits or other new gastrointestinal complaints.
[2022-12-28 11:42] VITALS: BP 129/80; PULSE 116; RESP 20; TEMP 36.3; O2SAT 97
--- NOTE | 2022-12-28 12:03 | W.ANESPRE ---
General Info Date of Service Date Performed: 12/28/22 Height: 4 ft 11 in Weight: 60.1 kg Body Mass Index (BMI): 26.7 Surgical Procedure: Operation Date: 12/28/22 12:05 Proposed Procedure Side Surgeon p Colonoscopy/Gastroscopy Talia Fajardo, Meds Allergies and Home Medications Allergies Allergy/AdvReac Type Severity Reaction Status Date / Time ibuprofen AdvReac Intermediate horrible Verified 12/27/22 14:17 headaches' Sulfa (Sulfonamide AdvReac Intermediate Agitation Verified 12/27/22 14:17 Antibiotics) Home Medication Medication Instructions Recorded acetaminophen 500 mg tablet 1,000 mg PO PRN 09/09/18 (Tylenol Extra Strength) losartan 25 mg tablet 25 mg PO DAILY 06/28/20 alendronate 70 mg tablet 70 mg PO QWEEK #13 tabs 08/14/22 famotidine 20 mg tablet 20 mg PO BID #60 tabs 08/14/22 clobetasol 0.05 % topical ointment 1 applic topical ONCE #60 grams 10/09/22 (Temovate) estradiol 0.01% (0.1 mg/gram) 1 g vaginal DAILY #42.5 grams 10/09/22 vaginal cream atorvastatin 40 mg tablet 40 mg PO QHS #90 tabs 11/08/22 cholecalciferol (vitamin D3) 50 200 mcg PO DAILY 12/11/22 mcg (2,000 unit) capsule Current Visit Medications: Current Medications Generic Name Dose Route Start Last Admin Trade Name Freq PRN Reason Stop Dose Admin Hyoscyamine Sulfate 0.125 mg 12/28/22 02:01 Hyoscyamine 0.125 Mg Sl/Oral/Chew SL 01/27/23 02:00 DIRECTED PRN Ringer's Solution 1,000 mls @ 80 mls/hr 12/28/22 06:00 IV 01/26/23 23:59 [facility] IV Miscellaneous Supplies 1 each 12/28/22 06:00 Iv Access IV 01/26/23 23:59 [facility] Ondansetron HCl 4 mg 12/28/22 02:01 Ondansetron 4 Mg/2 Ml Vial IVP 01/27/23 02:00 Q4H PRN PRN Nausea / Vomiting Sodium Chloride 0 ml 12/28/22 06:00 Normal Saline Flush 10 Ml Syr IV 01/26/23 23:59 PRN PRN Sodium Chloride 0 ml 12/28/22 06:00 Normal Saline 10 Ml Vial IJ 01/26/23 23:59 DIRECTED PRN Sterile Water 0 ml 12/28/22 06:00 Water,Injection,Sterile 10 Ml Vial IJ 01/26/23 23:59 DIRECTED PRN PFSH Active Problems Active Problems: Problem Status Onset Code Screening for malignant neoplasm of colon performed Z12.11 GERD (gastroesophageal reflux disease) K21.9 Right leg weakness R29.898 Gait abnormality R26.9 Vitamin deficiency related neuropathy E56.9, G63 Neurodegenerative gait disorder R26.89 Left-sided tinnitus H93.12 Back pain of thoracolumbar region M54.50, M54.6 Essential tremor G25.0 Seasonal affective disorder F33.8 Osteoporosis M81.0 Essential hypertension I10 Dysphagia R13.10 Lichen sclerosus et atrophicus L90.0 Depression 09/29/12 F32.9 Medical History Medical History SVT (supraventricular tachycardia) (09/01/14) 12/27/22: F/U with Dr. Woo @ [facility] annually. 01/2022. Symptomatic. Neg CXR, labs, Stress echo. Short runs noted on holter 02/01 Zio: PSVT MPI neg Surgical History Surgical History S/P tonsillectomy and adenoidectomy History of dental surgery Status post ORIF of fracture of ankle (01/10/18) Colonoscopy - MAC (12/23/12) DR. GASCA; NEG Tobacco Smoking/Tobacco Use Status: Never Passive smoking exposure: Yes Second hand exposure: Yes Alcohol Alcohol Intake: current Alcohol intake frequency: holidays/special occasions only Alcohol type: wine Substance Use Substance use: Never Substance use type: does not use Prental History History Para 2 Hx # Term Pregnancies Multiple births Hx # Pregnancies Ectopic pregnancies AB induced Hx Number of Living Children AB spontaneous Vital Signs and Lab Results Vital Signs Most Recent Vital Signs in EMR: Most Recent Vital Signs Temp Pulse Resp BP Pulse Ox 36.3 C L 116 H 20 129/80 97 12/28/22 11:42 12/28/22 11:42 12/28/22 11:42 12/28/22 11:42 12/28/22 11:42 Lab Results Blood Type / Crossmatch: No Data to Display Complete Blood Count: No Data to Display Complete Metabolic Panel: No Data to Display Liver Function Panel: No Data to Display Coagulation Panel: No Data to Display Cardiac Panel: No Data to Display Arterial Blood Gas: No Data to Display Venous Blood Gas: No Data to Display Pancreas Panel: No Data to Display Thyroid Panel: No Data to Display Infectious Disease: No Data to Display Blood Cultures: No Data to Display Toxicology Panel: No Data to Display Imaging and Studies Imaging and Studies Study information below may be from another EMR and interpreted by another provider. Please see original notes in EMR for more complete details. EKG Summary: DATE/TIME OF SERVICE: 12/30/211731 : 1950 PERFORMING LOCATION: ER APPROVED REPORT Exam: Resting ECG Reason for Exam: headache, vision change Patient Location: E HR:79 bpm ECG Measurements Heart Rate 79 AXIS FL 174 P 31 QRSd 71 QRS 15 QT 380 T7 QTc 437 Conclusion Sinus rhythm...normal P axis, V-rate 60- 99 sinus rhythm, normal axis, normal intervals, nonr ischemic Stress Test Summary: Date of study: 01/23/2017 *PATIENT PRESENTATION* Height: 154.9cm (61in) Blood Pressure: Weight: 62.7kg (138lb) BSA: 1.66m^2 Referring physician: Jason Keita Ordering physician: Erik Hollis Impressions: Negative stress test after maximal exercise. Summary: 1. Myocardial perfusion imaging: No myocardial perfusion defects noted. 2. The calculated left ventricular ejection fraction after stress: 75%. LV global systolic function is normal. No left ventricular regional motion abnormality. 3. Stress ECG conclusions: The stress ECG is negative. 4. Stress: The target heart rate was achieved. The heart rate response to stress is exaggerated. There is a normal resting blood pressure with an appropriate response to stress. The patient experienced no chest pain during stress. Exercise capacity is above normal for age. Date of Exam: 08/26/14 Sex: F : 1950 Age: 64 Exam(s) [id number] US:Stress Echocardiogram *[facility]* *[facility]* [address] [place] [address] Date of study: 08/26/2014 *STUDY CONCLUSIONS* Summary: 1. Stress: Maximal heart rate during stress was 184bpm (118% of maximal predicted heart rate). The maximal predicted heart rate was 156bpm. 2. Staged echo: Left ventricular ejection fraction was normal at rest and with stress. Normal echo stress 3. Stress ECG conclusions: EXERCISE ENDED AT 09 MINUTES 01 SECOND DUE TO PATIENT FATIGUE APPROXIMATELY 10.2 METS VINNIE PROTOCOL APPROPRIATE BP RESPONSE FREQUENT PVCs AT MAXIMAL EXERCISE NO ANGINA NO SIGNIFICANT ST CHANGES Anesthesia Assessment and Plan Anesthesia History Personal History: No History of Anesthesia Complications Family History: No Family History of Anesthesia Complications Exercise Tolerance Exercise Tolerance: Metabolic Equivalents>4 Pertinent Negatives Pertinent Negatives: No Major Pulmonary Symptoms or Complaints Cardiac & Pulmonary Exam Cardiac Exam: Normal S1/S2 Heart Sounds Pulmonary Exam: Clear Bilateral Breath Sounds Implantable Cardiac Device Does patient have a Pacemaker or an ICD?: No Airway Exam Known Difficult Airway: No Mallampati Class: 2 Mouth Opening: Normal (> 3cm) Thyromental Distance: Less than 3 cm Neck Range of Motion: Full ROM Neck Circumference: Normal Teeth Condition: Normal Dentition ASA Classification ASA Score: ASA 3 Emergency Case?: No NPO Status NPO Status: NPO Clears >2 hours, Solids >8 hours Anesthesia Plan Resuscitation Status: Full Code Anesthesia Technique: General Anesthesia Airway Planned: Natural Airway Monitors Used: Standard Monitors
[2022-12-28 12:06] VITALS: BMI 26.7
[2022-12-28] MEDS: Lactated Ringers 1,000 ML 80 ML IV (12:07)
--- NOTE | 2022-12-28 12:28 | STOM_PTH ---
PATIENT: Aliza Suarez LOC: [facility] U#:[id number] AGE/SX: 72/F ROOM: RE12/28/[address]: Talia Fajardo : 1950 BED: DIS: 12/28/2022 SPEC #: [id number] RECD: 12/28/22 13:32 STATUS: [facility] #: [id number] YANELY: 12/28/22 12:[address]: Talia Fajardo DEPT: Surgical Specimen RECD BY: Ginette Louis ENTERED: 12/28/22 13:36 SP TYPE: STOMACH OTHR DR: Rajani Negron Tissues: 1 - BIOPSY BOWEL 2 - BIOPSY BOWEL 3 - STOMACH BIOPSY 4 - STOMACH BIOPSY 5 - ESOPHAGUS BIOPSY 6 - ESOPHAGUS BIOPSY 7 - BIOPSY BOWEL 8 - BIOPSY BOWEL Procedures: GROSS AND MICRO LEVEL 4 Comments: [id number]
[2022-12-28 13:05] VITALS: BP 95/58; PULSE 87; RESP 14; TEMP 36.3; O2SAT 96
--- NOTE | 2022-12-28 13:14 | W.ANESPOSTOP ---
Postoperative Evaluation Date, Time and Location Date Performed: 12/28/22 Time Performed: 13:15 Patient Location: Day Surgery Unit Vital Signs Most Recent Imported Vital Signs: Most Recent Vital Signs Temp Pulse Resp BP Pulse Ox 36.3 C L 87 14 95/58 L 96 12/28/22 13:05 12/28/22 13:05 12/28/22 13:05 12/28/22 13:05 12/28/22 13:05 Pain Score Most Recent Pain Score: Most Recent Pain Score Pain Level 0 12/28/22 13:05 Assessment Mental Status: Awake (Alert & Oriented to Patient Baseline) Airway and Respiratory Function: Patent airway with normal (patient baseline) respiratory exam Cardiovascular Function: Hemodynamically Stable Hydration Status: Adequately Hydrated Nausea & Vomiting: No Nausea or Vomiting Pain: Pt. Denies Any Pain Peripheral Nerve Block: Patient did not receive a nerve block
[2022-12-28 13:35] VITALS: BP 144/74; PULSE 76; RESP 16; TEMP 36.4; O2SAT 98
== END 2022-12-28 14:15 | disposition home or self-care (01) ==
LOC: SUR 11:36
PROVIDERS: PCP Family Medicine; Visit Provider Surgery
PROC: (CPT 45385; principal; 2022-12-28 12:00)
DX: R13.10 Dysphagia, unspecified (principal); K29.70 Gastritis, unspecified, without bleeding; Z12.11 Encounter for screening for malignant neoplasm of colon; D12.5 Benign neoplasm of sigmoid colon; K31.89 Other diseases of stomach and duodenum; K22.89 Other specified disease of esophagus
CPT/HCPCS: 45385; 45380; 43239; 00123; 88305; J2704

== ENCOUNTER → 2023-06-13 13:02 | Outpatient (BNVA) | payer MEDICARE, SELFPAY | PROVIDERS: PCP Family Medicine; Referring Provider Family Medicine; Visit Provider Psychiatry & Neurology Neurology | DX: G25.0 Essential tremor (principal); R26.9 Unspecified abnormalities of gait and mobility; R29.898 Other symptoms and signs involving the musculoskeletal system; G31.84 Mild cognitive impairment of uncertain or unknown etiology | CPT/HCPCS: 99213 ==

== ENCOUNTER → 2023-06-21 01:02 | Outpatient (CLI) | payer MEDICARE, SELFPAY ==
[2023-06-21 09:47] LABS: Abs Immature Grans 0.01 10^3/uL (0.0-0.06); Absolute Basophil Count 0.05 10^3/uL (0.0-0.2); Absolute Eosinophil Count 0.07 10^3/uL (0.0-0.7); Absolute Lymphocyte Count 2.38 10^3/uL (1.2-3.4); Absolute Monocyte Count 0.46 10^3/uL (0.1-0.8); Absolute Neutrophil Count 3.35 10^3/uL (1.2-6.7); Basophils % 0.8; Eosinophils % 1.1; HCT 40.4 % (36.0-46.0); Immature Grans % 0.2; Lymphocytes % 37.7; MCHC 32.2 % (32.0-36.0); MCV 90 fL (80-95); MPV 9.7 fL (8.0-11.0); Monocytes % 7.3; Neutrophils % 52.9; Platelet Count 273 10^3/uL (130-400); RBC 4.48 10^6/uL (3.93-5.22); WBC 6.32 10^3/uL (4.4-10.8)
[2023-06-21 10:19] LABS: ALT 29 U/L (14-59); AST 22 U/L (15-37); Albumin 3.9 g/dL (3.4-5.0); Alkaline Phosphatase 82 U/L (46-116); Bilirubin, Direct 0.3 mg/dL (0.0-0.2); Bilirubin, Total 1.5 mg/dL (0.2-1.0); Estimated GFR 59.49 (mL/min/1.73m2); Total Protein 7.6 g/dL (6.4-8.2)
[2023-06-21 10:52] LABS: Vitamin D 25 Total 51.9 ng/mL (30-100)
[2023-06-21] MEDS: Omnipaque 350 MG/ML 500 ML BTL-Imaging package 100 ML IJ (11:36)
[2023-06-21] MEDS: Normal Saline - Diluent 50 ML VIAL IJ (11:39)
[2023-06-21] MEDS: Barium Sulfate 2% W/V-Berry Smoothie 450 ML BTL PO ×2 (11:41→11:42)
--- NOTE | 2023-06-21 11:46 | DI.CT_ITS ---
Exam(s) CT ABDOMEN PELVIS W EXAM: CT ABDOMEN PELVIS W CLINICAL HISTORY: bilat abd pain,acute,altered bowel habits,r19.4,r10.32,10.31. TECHNIQUE: Imaging Protocol: Axial computed tomography images with coronal and sagittal reformatted images were created and reviewed CONTRAST MATERIAL: Intravenous: Omnipaque-350 100cc Oral: As. Oral contrast was also administered for bowel opacification. COMPARISON: CT CT BRAIN NECK CTA from 12/30/2021 FINDINGS: VISUALIZED LUNG BASES: No nodules nor pleural effusions evident. ABDOMEN: There is no ascites. LIVER: There is a small 2 millimeter hypodensity left hepatic lobe which is probably a tiny benign cy st. There are no ominous focal hepatic lesions. No dilated intrahepatic ducts. GALLBLADDER/BILIARY: No obvious gallbladder pathology. CBD is not dilated. PANCREAS: No evidence of pancreatic mass nor dilatation of the pancreatic duct. SPLEEN: Spleen is not enlarged. No obvious intrasplenic lesions. Splenic and portal veins are paten t. ADRENALS: There are no significant adrenal masses. KIDNEYS:No cysts evident. No solid renal masses. No calculi nor hydronephrosis.. ABDOMINAL AORTA: Abdominal aorta is not enlarged. LYMPH NODES:There is no retroperitoneal nor paraaortic adenopathy. ABDOMINAL WALL: No evidence of significant anterior abdominal wall nor inguinal hernia. GI: There is no evidence of bowel obstruction, free air, nor abscess. PELVIS: GI: Appendix difficult to identify is separate structure but there are no obvious signs of acute appe ndicitis. No evidence of sigmoid diverticulitis. LYMPH NODES: There is no intrapelvic nor inguinal adenopathy. REPRODUCTIVE: Age-appropriate URINARY BLADDER: No calculi nor obvious masses evident OSSEOUS: No fractures and no significant osseous lesions. IMPRESSION: 1. No significant findings on this CT scan of the abdomen and pelvis. RADIATION DOSE DELIVERED: Total DLP DATA REPOSITORY: All CT scans at this facility are submitted to the National Radiology Data Registry (NRDR) Dose Index Registry (DIR) with the [employer] (A[employer]). RADIATION OPTIMIZATION: All CT scans at this facility use at least one of these dose optimization te chniques: automated exposure control; mA and/or kV adjustment per patient size (includes targeted exa ms where dose is matched to clinical indication); or iterative reconstruction.
== END ==
PROVIDERS: PCP Family Medicine; Visit Provider Family Medicine
DX: M81.0 Age-related osteoporosis without current pathological fracture (principal); B35.1 Tinea unguium; R10.31 Right lower quadrant pain; R10.32 Left lower quadrant pain; R19.4 Change in bowel habit; K76.89 Other specified diseases of liver
CPT/HCPCS: 80076; 82306; 74177; 82565; 85025

== ENCOUNTER 2023-07-31 05:12 | Outpatient (CLI) | payer MEDICARE, SELFPAY ==
[2023-07-31 15:49] LABS: ALT 45 U/L (14-59); AST 21 U/L (15-37); Albumin 3.9 g/dL (3.4-5.0); Alkaline Phosphatase 85 U/L (46-116); Bilirubin, Direct 0.3 mg/dL (0.0-0.2); Bilirubin, Total 1.2 mg/dL (0.2-1.0); Total Protein 7.4 g/dL (6.4-8.2)
== END 2023-07-31 05:13 | disposition home or self-care (01) ==
LOC: LBO 05:12
PROVIDERS: PCP Family Medicine; Visit Provider Family Medicine
DX: B35.1 Tinea unguium (principal)
CPT/HCPCS: 36415; 80076

== ENCOUNTER 2023-08-30 02:43 | Outpatient (CLI) | payer MEDICARE, SELFPAY ==
[2023-08-30 13:49] LABS: ALT 28 U/L (14-59); AST 16 U/L (15-37); Albumin 3.8 g/dL (3.4-5.0); Alkaline Phosphatase 79 U/L (46-116); Bilirubin, Direct 0.2 mg/dL (0.0-0.2); Bilirubin, Total 0.9 mg/dL (0.2-1.0); Total Protein 7.4 g/dL (6.4-8.2)
== END 2023-08-30 02:44 | disposition home or self-care (01) ==
LOC: LBO 02:44
PROVIDERS: PCP Family Medicine; Visit Provider Family Medicine
DX: B35.1 Tinea unguium (principal)
CPT/HCPCS: 36415; 80076

== ENCOUNTER → 2023-12-02 10:17 | Outpatient (BNVA) | payer MEDICARE, SELFPAY | PROVIDERS: PCP Family Medicine; Referring Provider Family Medicine; Visit Provider Psychiatry & Neurology Neurology | DX: M54.2 Cervicalgia (principal); G25.0 Essential tremor; R26.9 Unspecified abnormalities of gait and mobility; R29.898 Other symptoms and signs involving the musculoskeletal system; G31.84 Mild cognitive impairment of uncertain or unknown etiology | CPT/HCPCS: 99214 ==

== ENCOUNTER 2023-12-18 15:56 | Outpatient (CLI) | payer MEDICARE, SELFPAY ==
[2023-12-18 16:39] LABS: Anion Gap 7.4 mmol/L (3-11); BUN 10 mg/dL (7-18); CO2 30.6 mmol/L (21.0-32.0); CREATININE 0.8 mg/dL (0.55-1.02); Calcium 9.2 mg/dL (8.5-10.1); Calculated LDL 102 mg/dL (<100); Chloride 103 mmol/L (98-107); Cholesterol 209 mg/dL (<200); Estimated GFR 77.75 (mL/min/1.73m2); Glucose 112 mg/dL (74-106); HDL Cholesterol 72 mg/dL (40-60); Potassium 3.8 mmol/L (3.5-5.1); Sodium 141 mmol/L (136-145); Triglyceride 177 mg/dL (<150); Vitamin B12 413 pg/mL (193-986)
== END 2023-12-18 15:57 | disposition home or self-care (01) ==
LOC: LBO 16:04
PROVIDERS: PCP Family Medicine; Visit Provider Family Medicine
DX: R26.9 Unspecified abnormalities of gait and mobility (principal); M81.0 Age-related osteoporosis without current pathological fracture; Z13.6 Encounter for screening for cardiovascular disorders; I10 Essential (primary) hypertension
CPT/HCPCS: 36415; 80048; 80061; 82306; 82607

== ENCOUNTER 2024-01-09 23:40 | Emergency (ER) | payer MEDICARE, SELFPAY ==
--- NOTE | 2024-01-09 23:30 | RT.EKG_ITS ---
APPROVED REPORT Exam: Resting ECG Reason for Exam: elevated BP Patient Location: E HR:82 bpm ECG Measurements Heart Rate 82 AXIS MN 181 P 34 QRSd 76 QRS 17 QT 391 T 10 QTc 457 Conclusion Sinus rhythm...normal P axis, V-rate 60- [address] segment or T wave abnormalities to suggest occlusive ID
[2024-01-09 23:42] VITALS: BP 184/95; PULSE 89; RESP 18; TEMP 35.8; O2SAT 99
[2024-01-09 23:47] VITALS: BP 184/95; PULSE 89; RESP 18; TEMP 35.8; O2SAT 99
[2024-01-10] VITALS (10 sets, daily range): BP systolic 132–167; BP diastolic 67–85; PULSE 76–89; RESP 11–31; TEMP 36.4; O2SAT 97–99
[2024-01-10] MEDS: Acetaminophen 500 MG TAB 1000 MG PO (00:15)
[2024-01-10 00:37] LABS: Anion Gap 7.6 mmol/L (3-11); BUN 16 mg/dL (7-18); CO2 28.4 mmol/L (21.0-32.0); CREATININE 0.9 mg/dL (0.55-1.02); Calcium 9.5 mg/dL (8.5-10.1); Chloride 106 mmol/L (98-107); Glucose 110 mg/dL (74-106); Potassium 3.7 mmol/L (3.5-5.1); Sodium 142 mmol/L (136-145)
--- NOTE | 2024-01-10 01:55 | W.ED.GENAD ---
Discharge Plan Disposition Patient Disposition: Home Condition: Good Discharge Details Clinical Impression: Hypertension Primary Care Provider: Rajani Negron ED Provider: Franny Girard Home Meds and New Rx's Prescriptions: Continued estradiol 0.01 % (0.1 mg/gram) cream 1 g vaginal DAILY Qty: 42.5 1RF Rx Instructions: Apply a pea-sized amount of cream to the vulva daily clobetasol [Temovate] 0.05 % ointment 1 applic topical ONCE Qty: 60 1RF cholecalciferol (vitamin D3) 50 mcg (2,000 unit) capsule 200 mcg PO DAILY Qty: 90 3RF bupropion HCl [Wellbutrin XL] 150 mg tablet extended release 24 hr 150 mg PO QAM Qty: 30 6RF losartan 50 mg tablet 50 mg PO DAILY Qty: 90 1RF acetaminophen [Tylenol Extra Strength] 500 mg tablet 1,000 mg PO PRN pantoprazole [Protonix] 40 mg tablet,delayed release (DR/EC) 40 mg PO DAILY Qty: 30 12RF Discharge Instructions Additional Instructions: Keep your appointment with your PCP tomorrow. Return to the emergency department for new or worsening symptoms including chest pain, shortness of breath, decreased urine output, vision changes, or if you have any other concerns. Referrals: Rajani Negron MD [Primary Care Provider] - Discharge Data Discharge Date/Time-TO BE ENTERED AT DEPARTURE: 01/10/24 02:06 HPI General Mode of arrival: ambulatory. Date/Time Provider Initiated Documentation: 01/09/24 23:42. Limitations to Documentation: no limitations. Information obtained by: patient. HPI Narrative: 73yo F with hx HTN, GERD, presenting for elevated blood pressure. BP 170's/100's at home which is unusual for her. BP has been worse in general later, increasing home medication by PCP, has PCP appointment schedule for tomorrow. Reports mild diffuse headache, otherwise denies complaints. No chest pain, shortness of breath, vision changes, or change in urinary output. Otherwise in her usual state of health. Related Data Home Medications ?Medication ?Instructions ?Recorded ?Confirmed acetaminophen 500 mg tablet 1,000 mg PO PRN 09/09/18 01/09/24 (Tylenol Extra Strength) clobetasol 0.05 % topical ointment 1 applic topical ONCE #60 grams 10/09/22 01/09/24 (Temovate) estradiol 0.01% (0.1 mg/gram) 1 g vaginal DAILY #42.5 grams 10/09/22 01/09/24 vaginal cream pantoprazole 40 mg tablet,delayed 40 mg PO DAILY #30 tabs 12/28/22 01/09/24 release (Protonix) cholecalciferol (vitamin D3) 50 200 mcg (4 x 50 mcg (2,000 unit)) 06/07/23 01/09/24 mcg (2,000 unit) capsule PO DAILY #90 caps bupropion HCl 150 mg 24 hr tablet, 150 mg PO QAM #30 tabs 12/17/23 01/09/24 extended release (Wellbutrin XL) losartan 50 mg tablet 50 mg PO DAILY #90 tabs 12/26/23 01/09/24 Previous Rx's ?Medication ?Instructions ?Recorded clobetasol 0.05 % topical ointment 1 applic topical ONCE #60 grams 10/09/22 (Temovate) estradiol 0.01% (0.1 mg/gram) 1 g vaginal DAILY #42.5 grams 10/09/22 vaginal cream pantoprazole 40 mg tablet,delayed 40 mg PO DAILY #30 tabs 12/28/22 release (Protonix) cholecalciferol (vitamin D3) 50 200 mcg (4 x 50 mcg (2,000 unit)) 06/07/23 mcg (2,000 unit) capsule PO DAILY #90 caps bupropion HCl 150 mg 24 hr tablet, 150 mg PO QAM #30 tabs 12/17/23 extended release (Wellbutrin XL) losartan 50 mg tablet 50 mg PO DAILY #90 tabs 12/26/23 Allergies Allergy/AdvReac Type Severity Reaction Status Date / Time ibuprofen AdvReac Intermediate horrible Verified 01/09/24 23:51 headaches' Sulfa (Sulfonamide AdvReac Intermediate Agitation Verified 01/09/24 23:51 Antibiotics) General Stated Complaint: GenMedical MARCEL: 3 Review of Systems Narrative: see HPI Exam Narrative Exam Narrative: General: Alert, well appearing, well nourished, in no acute distress. Head: Normocephalic, atraumatic Neck: Trachea midline, ?Neck supple. ENT: ?MMM.? No oropharygeal lesions or exudate. Cardiac: ?RRR, no murmurs appreciated Resp: No respiratory distress. CTAB. Abd: ?Soft, non-distended, nontender Extremities: ?No deformities.? No peripheral edema. Neuro: ? GCS 15.? PERRL.? EOMI.? Fluent speech, no dysarthria. Motor- 5/5 strength symmetric bilateral upper and lower extrmeties including shoulder abductors/adductors, elbow flexors/extensors, wrist flexors/extensors, finger abductors/adductors, hipflexors/extensors, knee flexors/extensors, ankle dorsiflexors and planter flexors. Sensation- ?Intact to light touch and symmetric multiple dermatomes including upper and lower extrmeities Coordination- No dysmetria on finger to nose Reflexes- 2/4 achilles & patellar, no clonus Gait/station: ?Normal stance.? No truncal ataxia. Steady gait with equal normal steps CRANIAL NERVES: II: Pupils equal and reactive, III, IV, : EOM intact, no gaze preference or deviation, no nystagmus. V: normal sensation in V1, V2, and V3 segments bilaterally VII: no asymmetry, no nasolabial fold flattening VIII: normal hearing to speech IX, X: normal palatal elevation, no uvular deviation XI: 5/5 head turn and 5/5 shoulder shrug bilaterally XII: midline tongue protrusion Course Vital Signs Vital signs: Vital Signs Temperature 35.8 C L 01/09/24 23:42 Pulse 89 01/09/24 23:42 Respiratory Rate 18 01/09/24 23:42 Blood Pressure 184/95 H 01/09/24 23:42 Pulse Oximetry 99 01/09/24 23:42 Temperature 35.8 C L 01/09/24 23:47 Temperature Source Temporal Artery Scan 01/09/24 23:47 Pulse 76 01/10/24 01:31 Pulse 80 01/10/24 01:31 Respiratory Rate 14 01/10/24 01:31 Respiratory Effort Normal, Non-Labored 01/09/24 23:47 Respiratory Depth Normal 01/09/24 23:47 Respiratory Pattern Normal 01/09/24 23:47 Blood Pressure 132/67 01/10/24 01:31 Blood Pressure Mean 91 01/10/24 01:31 Blood Pressure Position Sitting 01/09/24 23:47 Pulse Oximetry 97 01/10/24 01:31 Oxygen Delivery Method Room Air 01/09/24 23:47 Oxygen Flow Rate 0 01/09/24 23:42 Pain Level 4 01/09/24 23:47 Lab/Test Results Lab/Test Results: Laboratory Tests Range/Units 01/10/24 00:21 Sodium (136-145) mmol/L 142 Potassium (3.5-5.1) mmol/L 3.7 Chloride (98-107) mmol/L 106 Carbon Dioxide (21.0-32.0) mmol/L 28.4 Anion Gap (3-11) mmol/L 7.6 BUN (7-18) mg/dL 16 Creatinine (0.55-1.02) mg/dL 0.9 Est GFR (CKD-EPI 2020) (mL/min/1.73m2) 67.50 Glucose (74-106) mg/dL 110 H Calcium (8.5-10.1) mg/dL 9.5 Medical Decision Making 73yo F with hx HTN, GERD, presenting for elevated blood pressure. BP 170's/100's at home which is unusual for her. Mild diffuse headache, otherwise no complaints. Hypertensive on arrival, vital signs and physical exam otherwise reassuring and normal neurologic exam. EKG with no acute ischemic changes. BMP normal. Not hypertensive emergency. Given 1g of tylenol for SHEFFIELD. On reassessment SHEFFIELD resolved, BP improved to 133/69 without further intervention. Discharged to followup with PCP. Discharge instructions and return precautions were reviewed with patient who verbalized understanding. All questions were answered and she is in full agreement with the plan. Lab Data Lab results reviewed: Yes I reviewed the patient's lab results. Labs: Laboratory Tests Range/Units 01/10/24 00:21 Sodium (136-145) mmol/L 142 Potassium (3.5-5.1) mmol/L 3.7 Chloride (98-107) mmol/L 106 Carbon Dioxide (21.0-32.0) mmol/L 28.4 Anion Gap (3-11) mmol/L 7.6 BUN (7-18) mg/dL 16 Creatinine (0.55-1.02) mg/dL 0.9 Est GFR (CKD-EPI 2020) (mL/min/1.73m2) 67.50 Glucose (74-106) mg/dL 110 H Calcium (8.5-10.1) mg/dL 9.5 Quality:SDOH Health Related Social Needs: No Data to Display PFSH All Active Problems (Updated 01/10/24 @ 01:56 by Franny Girard MD) Hypertension (Chronic) Chronic cough (Acute) question if secondary to dysphagia, muscular weakness Neck pain (Acute) Hyperbilirubinemia (Acute) Abdominal pain, acute, bilateral lower quadrant (Acute) MCI (mild cognitive impairment) (Acute) Cerumen impaction (Acute) Tinnitus of both ears (Acute) Plantar wart of right foot (Acute) Onychomycosis (Acute) Sessile colonic polyp (Acute ~12/28/22) villious/tubulovillous/sessile serrated GERD (gastroesophageal reflux disease) (Chronic) pathology negative for Reynolds's on EGD 2022 Gait abnormality (Acute) Left-sided tinnitus (Acute) Essential tremor (Acute) evaluated with neurology, not warranting treatment Seasonal affective disorder (Acute) Osteoporosis (Chronic) 06/2021, DEXA scan at [facility], 1 out of 3 sites positive for osteoporosis ( t score- -3.7) at the forearm, T score is -2.4 at lumbar back Essential hypertension (Chronic) Managed by [facility] Cardiology Dysphagia (Chronic) has nasolaryngoscopy with inflammation of vocal cords with ENT; treated with PPI temporarily. Lichen sclerosus et atrophicus (Acute) Managed by Dr. Mendoza with both estrogen and steroids. Medical History Depression (09/29/12) assoc with SAD; uses bupropion seasonally. SVT (supraventricular tachycardia) (09/01/14) 12/27/22: F/U with Dr. Woo @ [facility] annually. 01/2022. Symptomatic. Neg CXR, labs, Stress echo. Short runs noted on holter 02/01 Zio: PSVT MPI neg Surgical History S/P colonoscopy (~12/2022) History of esophagogastroduodenoscopy (~12/2022) S/P tonsillectomy and adenoidectomy History of dental surgery Status post ORIF of fracture of ankle (10/26/18) Family History Mother Essential hypertension Heart disease ME @ 75 Mental disorder vascular dementia Stroke Father , 94 Mental disorder Depression Depression Brother Diabetes Brother Cancer Depression Grandfather Heart disease Grandfather Heart disease Grandmother Personal history of malignant neoplasm Cervical or uterine Son Depression Social History Smoking/Tobacco Use Status: Never Second Hand Exposure: Yes Smoking risk assessment performed?: Yes Alcohol Intake: current Alcohol Intake frequency: holidays/special occasions only Alcohol type: wine Drug use: Never Substance use type: does not use Caregiver/Support person: No Household members: spouse Housing: house Number of Children: 2 number of grandchildren: 0 Communication Needs: None Education Level: master's degree Do you need help understanding health information?: Rarely 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 Pets and animals: Yes Pets and animals: cat(s) Sexually active: No Do you think of yourself as: straight/heterosexual Current gender identity: female What is your relationship status?: How often do you talk on the phone with friends or family?: twice per week How often do you get together with friends or relatives?: three or more times per week How often do you attend yarsanism or shinto services?: 1-3 times per year Do you belong to any clubs or organized social groups?: yes Panel score (0-1 are the most socially isolated patients): 3 What type of physical activity do you participate in: walking Duration: 30-45 minutes/day Frequency: 5-6 times per week Adeline/Confucianist: Catholic Special adeline needs: No Seatbelt use: always Helmet use: Yes Helmet use: always Drive intox or ride w/intox certified driver examiner: No Do you feel safe at home: Yes Do you feel safe in your relationship?: Yes History History Para 2 Hx # Term Pregnancies Multiple births Hx # Pregnancies Ectopic pregnancies AB induced Hx Number of Living Children AB spontaneous
== END 2024-01-10 02:06 | disposition home or self-care (01) ==
PROVIDERS: Emergency Provider Student in an Organized Health Care Education/Training Program; PCP Family Medicine
DX: R51.9 Headache, unspecified (principal); I10 Essential (primary) hypertension
CPT/HCPCS: 36415; 80048; 93005; 99283; 93010

== ENCOUNTER → 2024-03-02 10:44 | Outpatient (BNVA) | payer MEDICARE, SELFPAY | PROVIDERS: PCP Family Medicine; Visit Provider Psychiatry & Neurology Neurology | DX: G31.84 Mild cognitive impairment of uncertain or unknown etiology (principal); I10 Essential (primary) hypertension; G25.0 Essential tremor; R26.9 Unspecified abnormalities of gait and mobility; R29.898 Other symptoms and signs involving the musculoskeletal system; M54.2 Cervicalgia | CPT/HCPCS: 99214 ==

== ENCOUNTER 2024-06-23 00:55 | Outpatient (CLI) | payer MEDICARE, SELFPAY ==
--- NOTE | 2024-06-23 07:30 | DI.RAD_ITS ---
Exam(s) XR FOOT LT COMPLETE EXAM: XR FOOT LT COMPLETE CLINICAL HISTORY: left 1st MTP pain,M79.675. TECHNIQUE: 2D digital imaging was performed. Three views. COMPARISON: CR XR FOOT RT LIMITED from 01/29/2020 FINDINGS: BONES: No acute fracture is present. No bony destructive lesion is seen. JOINTS: No dislocation present. Severe narrowing of the 1st MTP joint space with prominent periarti cular spurring. Mild hallux valgus. SOFT TISSUE: Normal. 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 DATA REPOSITORY: RADIATION DOSE DELIVERED:
== END 2024-06-23 01:15 ==
LOC: DI 00:55
PROVIDERS: PCP Family Medicine; Visit Provider Family Medicine
DX: M79.675 Pain in left toe(s) (principal)
CPT/HCPCS: 73630

== ENCOUNTER 2024-07-20 00:36 | Outpatient (CLI) | payer MEDICARE, SELFPAY ==
--- NOTE | 2024-07-20 08:15 | DI.MAMMO_ITS ---
Exam(s) MAMMO SCREENING EXAM: MAMMO SCREENING CLINICAL HISTORY: screening, Z12.39. TECHNIQUE: Bilateral full field digital CC and MLO mammographic images were obtained with 3D tomosyn thesis and utilizing computer aided detection (CAD). COMPARISON: Prior mammograms were reviewed. FINDINGS: There has been no significant change in the appearance and distribution of the fibroglandular tissue. There are no new spiculated masses nor malignant appearing microcalcification groups. There is no significant architectural distortion nor skin thickening-retraction. IMPRESSION: No radiographic evidence of malignancy. BI-RADS Category 1 - Negative Breast Density - Category B - There are scattered areas of fibroglandular density. Breast density Category C or D implies that the patient has dense breast tissue. Dense breast tissue can make it harder to find cancer on a mammogram. Dense breast tissue is also associated with an incr eased risk of breast cancer. This information about the result of the mammogram report was provided to the patient to raise their awareness. Use this report when you speak with the patient about their risks for breast cancer, which includes their family history. At that time, you may recommend additional screening tests (Ultrasoun d or MRI) as these tests may add significant information. A negative radiographic report should not delay biopsy if a dominant or clinically suspicious mass is present. Up to ten percent of cancers are not identified on mammography. A negative report may reinforce clinical impression. Adenosis and dense breasts may obscure an underlying neoplasm. False positive reports average 6 to 10%. Patient will receive a letter notifying them of these results.
== END 2024-07-20 00:56 ==
LOC: DI 00:39
PROVIDERS: PCP Family Medicine; Visit Provider Family Medicine
DX: Z12.31 Encounter for screening mammogram for malignant neoplasm of breast (principal); R92.323 Mammographic fibroglandular density, bilateral breasts
CPT/HCPCS: 77063; 77067

== ENCOUNTER → 2024-08-31 10:06 | Outpatient (BNVA) | payer MEDICARE, SELFPAY | PROVIDERS: PCP Family Medicine; Visit Provider Psychiatry & Neurology Neurology | DX: G25.0 Essential tremor (principal); R26.9 Unspecified abnormalities of gait and mobility; R29.898 Other symptoms and signs involving the musculoskeletal system; G31.84 Mild cognitive impairment of uncertain or unknown etiology; M54.2 Cervicalgia | CPT/HCPCS: 99214 ==

== ENCOUNTER → 2024-09-23 13:52 | Outpatient (BNVA) | payer MEDICARE, SELFPAY | PROVIDERS: PCP Family Medicine; Referring Provider Family Medicine; Visit Provider Podiatrist | DX: M79.671 Pain in right foot (principal); M20.21 Hallux rigidus, right foot; M19.079 Primary osteoarthritis, unspecified ankle and foot | CPT/HCPCS: 20600; 99213; J0702; J1100 ==

== ENCOUNTER → 2024-10-29 14:36 | Outpatient (BNVA) | payer MEDICARE, SELFPAY | PROVIDERS: PCP Family Medicine; Referring Provider Family Medicine; Visit Provider Podiatrist | DX: M20.21 Hallux rigidus, right foot (principal); M19.071 Primary osteoarthritis, right ankle and foot; M79.671 Pain in right foot | CPT/HCPCS: 99213 ==